=== PATIENT | male | born 1935 | race Caucasian/White ===

== ENCOUNTER → 2016-07-08 19:23 | Outpatient (CLI) | payer MEDICARE, BC ==
[2015-10-29 14:21] VITALS: BMI 22.1
[~2016-07-08 19:23] MED LIST: ALEVE220 MG PO; ELIQUIS2.5 MG PO; HYDROCODONE-APA1 TAB PO; NEURONTIN 300300 MG PO; PROBIOTIC1 EAC1 PO
== END | disposition home or self-care (01) ==
LOC: D.LABREF 19:23
DX: M25.561 Pain in right knee (principal)

== ENCOUNTER 2016-07-21 05:26 | Inpatient (IN) | payer MEDICARE, BC ==
[2016-07-17 13:50] LABS: BASOPHILS 0.4 % (0-2); EOSINOPHILS 1.4 % (0-7); HEMATOCRIT 39.5 % (42.0-54.0); HEMOGLOBIN 13.7 g/dL (13.5-17.5); IMMATURE GRANULOCYTES 0.2 % (0-5); LYMPHOCYTES 31.2 % (15-50); MCH 32.2 pg (26.0-34.0); MCHC 34.7 g/dL (31.0-37.0); MCV 92.9 fL (80.0-100.0); MEAN PLATELET VOLUME 10.3 fL (7.4-10.4); MONOCYTES 9.4 % (2-11); NEUTROPHILS 57.4 % (40-80); PLATELET COUNT 223 10x3/uL (130-400); RBC 4.25 10x6/uL (4.20-6.10); RDW 12.5 % (11.5-14.5); WBC 5.5 10x3/uL (4.8-10.8)
[2016-07-17 13:51] LABS: APTT 30.5 SECONDS (22.8-39.4); INR 0.9 (0.85-1.17); PROTIME 11.9 SECONDS (11.6-15.0)
[2016-07-17 13:52] LABS: APPEARANCE CLEAR (CLEAR); BILIRUBIN NEGATIVE (NEGATIVE); COLOR YELLOW (YELLOW); GLUCOSE NEGATIVE (NEGATIVE); KETONE NEGATIVE (NEGATIVE); LEUKOCYTE ESTERASE NEGATIVE (NEGATIVE); NITRITE NEGATIVE (NEGATIVE); PROTEIN NEGATIVE (NEGATIVE); SPECIFIC GRAVITY 1.025 (1.005-1.020); UROBILINOGEN NORMAL (NORMAL)
[2016-07-17 13:53] LABS: WHITE CELLS - URINE 0-5 /hpf (0-5)
[2016-07-17 13:54] LABS: BACTERIA FEW /hpf (NONE SEEN); EPITHELIAL CELLS OCC /hpf (0-5); MUCUS >1+ /lpf (NONE SEEN); RED CELLS - URINE 0-5 /hpf (0-5)
[2016-07-17 14:00] LABS: ANION GAP 11.2 mmol/L (8-16); CALCIUM 9.1 mg/dL (8.5-10.1); CARBON DIOXIDE 27.8 mmol/L (21.0-32.0); CREATININE - SERUM 1.3 mg/dL (0.6-1.3)
[~2016-07-21] VITALS: Ht 188 cm; Wt 81.8 kg
[2016-07-21] VITALS (11 sets, daily range): BP systolic 111–137; BP diastolic 51–87; Ht 188 cm; Wt 81.8 kg
--- NOTE | 2016-07-21 14:36 | NUR ---
PATIENT RECEIVED TO FLOOR FROM PACU VIA BED. A/O X4. VITAL SIGNS STABLE. DENIES NEEDS. ORIENTED TO ROOM. DRESSING TO RIGHT KNEE CLEAN, DRY AND INTACT. SCDS ON BILATERALLY. INCENTIVE SPIROMETER AND TEACHING ON USE PROVIDED. DEMONSTRATES CORRECT USE. SIDE RAILS UP X3. BED IN LOW POSITION. CALL LIGHT IN REACH. BED ALARM ON.
--- NOTE | 2016-07-21 16:45 | NUR ---
ALERT IN BED. NO SIGNS OF DISTRESS. MEDICATION ADMINISTERED. SIDE RAILS UP X2. BED IN LOW POSITION. CALL LIGHT IN REACH. BED ALARM ON.
--- NOTE | 2016-07-21 22:54 | NUR ---
PATIENT SITTING UP IN BED. ALERT AND ORIENTED. NO SIGNS OF DISTRESS NOTED. SCHEDULED MEDS GIVEN. SHIFT ASSESSMENT COMPLETED. DENIES NEEDS AT THIS TIME. BED LOW. CALL LIGHT IN REACH
[2016-07-22 05:03] LABS: HEMATOCRIT 37.7 % (42.0-54.0); HEMOGLOBIN 12.8 g/dL (13.5-17.5); MCH 31.8 pg (26.0-34.0); MCV 93.5 fL (80.0-100.0); MEAN PLATELET VOLUME 10.6 fL (7.4-10.4); RBC 4.03 10x6/uL (4.20-6.10); RDW 12.3 % (11.5-14.5); WBC 9.2 10x3/uL (4.8-10.8)
--- NOTE | 2016-07-22 07:20 | NUR ---
PATIENT RECEIVED ALERT IN MID MATTA POSITION. NO SIGNS OF DISTRESS NOTED. C/O PAIN 11/25. SIDE RAILS UP X3. BED IN LOW POSITION. CALL LIGHT IN REACH. BED ALARM ON.
--- NOTE | 2016-07-22 08:53 | NUR ---
PATIENT ALERT IN BED. NO SIGNS OF DISTRESS NOTED. SCHEDULED MEDICATION ADMINISTERED. NO NEEDS VOICED. SIDE RAILS UP X2. BED IN LOW POSITION. CALL LIGHT IN REACH. BED ALARM ON.
[2016-07-22 09:03] VITALS: BP 124/74
--- NOTE | 2016-07-22 11:45 | NUR ---
SITTING UP IN CHAIR ALERT. C/O PAIN 5/10. 1 TAB PERCOCET ADMINISTERED PER PRN ORDER. ICE PACK PLACED TO RIGHT KNEE. BOX ALARM ON AND ATTACHED TO PATIENT. CALL LIGHT IN REACH.
[2016-07-22 12:39] VITALS: BP 101/50
--- NOTE | 2016-07-22 14:03 | NUR ---
ALERT IN HIGH MATTA POSITION. NO SIGNS OF DISTRESS NOTED. SCHEDULED MEDICATION ADMINISTERED. NO NEEDS VOICED. SIDE RAILS UP X2. BED IN LOW POSITION. CALL LIGHT IN REACH. BED ALARM ON.
--- NOTE | 2016-07-22 14:41 | NUR ---
* Is the patient Alert and Oriented? Yes 0 * PCP [facility] 0 * Pharmacy [facility] 0 * Preadmission Environment Home Alone 0 * ADLs Independent 0 * Equipment Bedside Commode Cane Elevated [place] Seat Rolling Walker Shower Chair Walker 0 * List name and contact numbers for known caregivers / representatives who currently or will assist patient after discharge: JUDY TELLEZ [phone] 0 * Community resources currently utilized None 0 * Additional services required to return to the preadmission environment? Yes 0 * Can the patient safely return to the preadmission environment? Yes 0 * Has this patient been hospitalized within the prior 30 days at any hospital? No 0 Grand Total: 0 Patient Name: SHARMIN HERR Admission Status: Elective Accout number: [id number] Admission Date: 07-21-2016 : 1935 Admission Diagnosis: Attending: EDGARD Current LOS: 1 Anticipated DC Date: 07-24-2016 Planned Disposition: [facility] Primary Insurance: MEDICARE A & B Discharge Planning Comments: CM met with patient to assess discharge planning/needs. Patient states his discharge plan is go to [facility] for rehab because he lives alone and does not have anyone to help him. Patient states he is very happy with [facility]. ANIRUDH signed and placed in chart. Patient states that he has a ramp to his house along with cane,walker, wheelchair, shower chair, elevated toilet seat and denies any other home needs. CM will continue to follow and assist as needed with discharge planning needs. PCP: [facility] Pharmacy: [facility] Romeon[facility] Daughter - Judy Tellez [phone] Executive Vice President And Chief Operating Officer: Rose Qiu
--- NOTE | 2016-07-22 15:20 | NUR ---
DRESSING TO RIGHT KNEE SATURATED WITH BLOOD AND LEAKING. DRESSING D/C. BUDDY INTACT. NO REDNESS OR ODOR NOTED. NEW AQUACEL AG PLACED OVER INCISION, THEN COVERED WITH 4X4, ABD PAD AND WRAPPED WITH PETRONA. ICE PACK APPLIED. WELL TOLERATED. SIDE RAILS UP X2. BED IN LOW POSITION. CALL LIGHT IN REACH. BED ALARM ON.
--- NOTE | 2016-07-22 15:43 | NUR ---
Patient Name: SHARMIN HERR Encounter No: [id number] : 1935 Primary Insurance: MEDICARE A & B Anticipated DC Date: 07-24-2016 Planned Disposition: Intermediate Facility External Planned Provider: Leandro Messer DC follow-up note: Referral sent to Shanna at [facility]. Waiting determination, anticipate 07/24/16. Patient in agreement with discharge plan. No changes to plan. Case management will follow and assist as needed. Rose Qiu
[2016-07-22 16:46] VITALS: BP 120/74
--- NOTE | 2016-07-22 17:14 | NUR ---
PATIENT ALERT IN BED WATCHING TV. NO SIGNS OF DISTRESS NOTED. DENIES NEEDS. SIDE RAILS UP X2. BED IN LOW POSITION. CALL LIGTH IN REACH. BED ALARM ON.
[2016-07-22 20:00] VITALS: BP 142/70
--- NOTE | 2016-07-22 20:45 | NUR ---
PATIENT RESTING IN BED. ALERT. SOME CONFUSION NOTED. C/O PAIN 10/10 TO KNEE. PRN PERCOCET GIVEN ORDERED. SCHEDULED MEDS GIVEN. SHIFT ASSESSMENT COMPLETED. NO OTHER NEEDS VOICED. BED LOW. CALL LIGHT IN REACH. BED ALARM ON.
--- NOTE | 2016-07-22 22:20 | NUR ---
PT VERY CONFUSED. ATTEMPTING TO GET OUT OF BED. STATING HE'S OLD ENOUGH TO DO HE PLEASES IN HIS HOUSE. STATES HE'S TIRED OF BEING TIED TO THE BED REFERRING TO THE SCD'S. ATTEMPTS TO REORIENT ARE UNSUCCESSFUL. PT SITTING ON THE SIDE OF THE BED NOW. WILL SIT WITH THE PT UNTIL HE'S READY TO LIE DOWN.
[2016-07-23] VITALS: BP 150/72
[2016-07-23 04:00] VITALS: BP 155/70
[2016-07-23 06:46] LABS: HEMATOCRIT 36.1 % (42.0-54.0); HEMOGLOBIN 12.2 g/dL (13.5-17.5); MCH 31.5 pg (26.0-34.0); MCHC 33.8 g/dL (31.0-37.0); MCV 93.3 fL (80.0-100.0); MEAN PLATELET VOLUME 10.5 fL (7.4-10.4); RBC 3.87 10x6/uL (4.20-6.10); RDW 12.6 % (11.5-14.5)
[2016-07-23 06:47] LABS: WBC 6.7 10x3/uL (4.8-10.8)
--- NOTE | 2016-07-23 07:20 | NUR ---
PT REC'D FROM [facility]. RESTING IN BED WITH EYES CLOSED. NO SIGNS OF DISTRESS. RESP EVEN AND UNLABORED. DRESSING TO R KNEE CDI. BED LOW, CALL LIGHT IN REACH, DENIES NEEDS. CPOC.
[2016-07-23 08:59] VITALS: BP 131/73
--- NOTE | 2016-07-23 09:07 | NUR ---
Shanna with [facility] called and stated that the patient was accepted and she will call back with a picker tender helper time to tomorrow (07/24/16)
--- NOTE | 2016-07-23 09:59 | NUR ---
Shanna with [facility] called with picking machine operator time for 11:00 on () 07/24/16
[2016-07-23 13:22] VITALS: BP 130/68
[2016-07-23 16:29] VITALS: BP 138/81
[2016-07-23 20:00] VITALS: BP 125/77
[2016-07-24] VITALS: BP 130/76
--- NOTE | 2016-07-24 02:12 | NUR ---
REC'D AT [facility]. OF SHIFT AMB. IN HALLWAY WITH WALKER.DEEPA.WELL.ACEWRAP CLEAN AND DRY TO RIGHT KNEE NO DRAINAGE NOTED.FOOT PINK AND WARM PEDAL PULSE PRESENT,WIGGLE TOES AND DORSIFLEXES WITHOUT DIFFICULTY.WILL CONTINUE TO MONITOR FOR ANY CHGES. IN NEUROVASCULAR STATUS AND FOLLOW CURRENT PLAN OF CARE
[2016-07-24 04:00] VITALS: BP 122/66
--- NOTE | 2016-07-24 07:00 | NUR ---
PT REC'D FROM [facility]. RESTING IN BED WITH EYES CLOSED. NO SIGNS OF DISTRESS. RESP EVEN AND UNLABORED. BED LOW, CALL LIGHT IN REACH, DENIES NEEDS. CPOC.
[2016-07-24] MEDS ORDERED: ELIQUIS2.5 MG PO (08:05)
[2016-07-24] MEDS ORDERED: HYDROCODONE-APA1 TAB PO (08:05)
[2016-07-24 08:08] VITALS: BP 125/75
--- NOTE | 2016-07-24 08:27 | NUR ---
PATIENT SITTING UP IN THE BED AND EATING HIS BREAKFAST. PATIENT IS AWAKE, ALERT, AND ORIENTED X4. PATIENT REPORTS PAIN IN HIS RIGHT KNEE AND BACK. PATIENT RATES HIS PAIN LEVEL AN "8" ON A 0-10 SCALE. PETRONA DRESSING INTACT TO PATIENT'S RIGHT KNEE AREA. SALINE LOCK PATENT TO PATIENT'S LEFT ARM. PATIENT REQUESTS PAIN MEDICINE. WILL MEDICATE PATIENT FOR PAIN. PATIENT STATES HE WILL BE DISCHARGED TO [facility] TODAY FOR REHAB. CALL LIGHT IN PATIENT'S REACH. WILL MONITOR PATIENT.
--- NOTE | 2016-07-24 09:44 | NUR ---
REPORT CALLED TO TANNER ALLRED, AT [facility]. MORNING MEDS PASSED AT THIS TIME. ASSESSMENT COMPLETED PER FLOWSHEET. PAIN MEDICATION ADMINISTERED PER TAY JAMES. PT UP AMBULATING AROUND ROOM WITHOUT DIFFICULTY. BED LOW, CALL LIGHT IN REACH, DENIES NEEDS. CPOC.
--- NOTE | 2016-07-24 10:00 | NUR ---
PT UP AMBULATING WITH PHYSICAL THERAPY. TOLERATING WELL.
--- NOTE | 2016-07-24 11:12 | NUR ---
DC INSTRUCTIONS DISCUSSED WITH PT. NO QUESTIONS OR CONCERNS VOICED AT THIS TIME. PAPERS SIGNED. IV TO L FOREARM DC'D WITH CATHETER INTACT. PRESSURE AND DRESSING APPLIED. WEBBING WEAVER FROM [employer] HERE TO ESCORT PT OUT VIA WC.
--- NOTE | 2016-07-24 11:43 | NUR ---
patient discharged today to [facility] to a Skilled Bed. via [facility] transportation.
== END 2016-07-24 11:13 | DRG 468 ==
LOC: D.SDCHOLD 05:26 → D.MS 05:26 → D.SDCHOLD 10:45 → D.MS 14:29
PROVIDERS: ADMIT Orthopaedic Surgery
PROC: 0SPC0JZ Removal of Synthetic Substitute from Right Knee Joint, Open Approach (ICD-10-PCS; 2016-07-21)
PROC: 0SRC0JZ Replacement of Right Knee Joint with Synthetic Substitute, Open Approach (ICD-10-PCS; principal; 2016-07-21 10:45)
DX: T84.84XA Pain due to internal orthopedic prosthetic devices, implants and grafts, initial encounter (principal)

== ENCOUNTER 2016-10-06 07:28 | Outpatient (CLI) | payer MEDICARE, BC ==
[~2016-10-06] VITALS: Ht 188 cm; Wt 81.8 kg
--- NOTE | ~2016-10-06 | HEMODYNAMI ---
PATIENT:SHARMIN HERR MEDICAL RECORD: [id number] : [birth year] LOCATION:[facility] ADMISSION DATE: 10/06/16 Generatedon:10/06/201611:50 Patient name: SHARMIN HERR Patient #: [id number] SSN: D OB: 1935 Date of study: 10/06/2016 Page: Of Hemodynamic Procedure Report Patient Data Patient Demographics Procedure consent was obtained First Name: SHARMIN Gender: Male Last Name: NEMESIO : 1935 [facility] Initial: JAIME Age: 81 year(s) Patient #: [id number] Race: Unknown Additional ID: [id number] Contact details Address: [address] [place] [address] [place] [place] [facility] Zip code: [address] Admission Admission Data Admission Date: 10/06/2016 Admission Time: 7:28 Procedure Procedure Types Cath Procedure Peripheral Cath Diagnostic Procedure Miscellaneous Procedure Description Procedure Date Procedure Date: 10/06/2016 Procedure Start Time: 10:50 Procedure Staff Name Function Quinn Langston MD Performing Physician Sury Winters RT Scrub Fabricio Fuchs RT Monitor Esther Mesa RN Nurse Procedure Data Cath Procedure Fluoroscopy Diagnostic fluoroscopy Total fluoroscopy Time: 9.1 time: 9.1 min min Diagnostic fluoroscopy Total fluoroscopy dose: 203 dose: 203 mGy mGy Contrast Material Contrast Material Type Amount (ml) Isovue 300 61 Entry Location Entry Primary Successful Side Size Upsize Upsize Entry Closure Succ essful Closure Location (Fr) 1 (Fr) 2 (Fr) Remarks Device Remarks Femoral Left 5 Fr 8 Fr Angio-VIP artery 8Fr Diagnostic catheters Device Type Used For End Catheter Placement Merit ULTRA BOLUS FLUSH 5Fr 65CM catheter Hemodynamics Rest Heart Rate: 59 (bpm) Snapshots Pre Cath Intra NCS Post Cath Vital Signs Time Heart Resp SPO2 NIBP (mmHg) Rhythm Pain Sedation Rate (ipm) (%) Status Level (bpm) 10:35:02 61 16 100 143/76(120) NSR 0 (11) 10(A) , No pain 10:39:18 62 13 94 145/72(116) NSR 0 (11) 10(A) , No pain 10:43:34 76 13 99 143/80(110) NSR 0 (11) 10(A) , No pain 10:47:50 73 11 98 127/76(106) NSR 0 (11) 10(A) , No pain 10:52:00 72 11 98 134/73(98) NSR 0 (11) 10(A) , No pain 10:56:14 72 10 99 126/72(107) NSR 0 (11) 10(A) , No pain 11:00:25 71 10 99 121/68(102) NSR 0 (11) 10(A) , No pain 11:04:36 70 11 98 124/69(97) NSR 0 (11) 10(A) , No pain 11:08:45 67 11 99 136/72(102) NSR 0 (11) 10(A) , No pain 11:13:01 72 11 99 133/69(101) NSR 0 (11) 10(A) , No pain 11:17:13 72 11 96 122/76(94) NSR 0 (11) 10(A) , No pain 11:21:23 73 10 97 130/73(104) NSR 0 (11) 10(A) , No pain 11:25:37 72 10 98 120/68(90) NSR 0 (11) 10(A) , No pain 11:29:51 72 11 98 117/60(92) NSR 0 (11) 10(A) , No pain 11:33:59 73 10 99 122/71(93) NSR 0 (11) 10(A) , No pain 11:38:11 70 11 99 120/68(99) NSR 0 (11) 10(A) , No pain 11:42:23 66 11 100 132/67(111) NSR 0 (11) 10(A) , No pain 11:46:33 68 10 100 148/87(126) NSR 0 (11) 10(A) , No pain Procedure Log Time Note 10:11:37 Fabricio Fuchs RT (R) (CV) sent for patient. Start room use. 10:11:48 Time tracking: Regular hours 10:11:54 Plan of Care:Hemodynamics will remain stable., Cardiac rhythm will remain stable., Comfort level will be maintained., Respiratory function will remain adequate., Patient/ family verbilizes understanding of procedure., Procedure tolerated without complication., Recovers from procedure without complications.. 10:21:45 AL with anesthesia here for case 10:22:20 Patient received from Outpatients to IR Alert and oriented. Tansferred to table in Supine position. 10:22:22 Warm blankets applied, and jennifer hugger turned on for patient comfort. 10:22:23 Correct patient and procedure confirmed by team. 10::25 Signed procedure consent form obtained from patient. 10:22:25 ECG and BP/O2 sat monitors applied to patient. 10::27 Full Disclosure recording started 10::28 - 10:22:33 H&P Date Dictated: 10/06/2016 H&P Addendum completed by physician on day of procedure. (MUST COMPLETE FOR ALL OUTPATIENTS). 10:22:35 Pre-procedure instructions explained to patient. 10:22:36 Pre-op teaching completed and patient verbalized understanding. 10:22:40 Use device set IR Diagnostic 10:22:41 Acist Syringe opened to sterile field. 10:22:41 Acist Hand Control opened to sterile field. 10:22:42 Acist Manifold opened to sterile field. 10:22:42 Bag Decanter opened to sterile field. 10:22:43 Sterile Angiographic Pack opened to sterile field. 10:22:57 Family unavailable. 10:23:00 Patient NPO since Midnight. 10:25:16 SEE ANESTHESIA NOTE FO PRE PROCEDURE TIVA 10:25:27 Pre procedure: right dorsailis pedis pulse 1+ Palpable, but thready & weak; easily obliterated 10:25:30 Pre procedure: left dorsailis pedis pulse 1+ Palpable, but thready & weak; easily obliterated 10:25:33 Pre procedure: right posterior tibial pulse Doppler 10:25:36 Pre procedure: left posterior tibial pulse Doppler 10:25:43 Bilateral groins area was prepped with chlora-prep and draped in steril e fashion 10:33:54 Vital chart was started 10:33:55 Baseline sample Acquired. 10:33:59 Rhythm: sinus rhythm 10:47:19 Physician arrived 10:47:19 --------ALL STOP TIME OUT------ 10:47:20 Final Timeout: patient, procedure, and site verified with staff and physician. All members of the team are in agreement. 10:47:24 Bilateral groins site verified by team. 10:47:27 Physical assessment completed. ASA score P 2 - A patient with mild systemic disease as per Quinn Langston MD. 10:47:33 Sedation plan: TIVA Propofol 10:49:31 Procedure started. 10:50:41 Local anesthetic to left femerol artery with Lidocaine 1% by Quinn Langston MD.INITIAL ACCESS ONLY 10:50:52 A 5 Fr sheath was inserted into the Left Femoral artery 10:50:55 Cook DOC .035 guide wire opened to sterile field. 10:50:55 PERCUTANEOUS ENTRY 19GA needle opened to sterile field. 10:50:56 TUBING, CONTRAST INJCTN HI PRES opened to sterile field. 10:50:56 Terumo 5Fr Vinton Sheath opened to sterile field. 10:50:58 A Profound ULTRA BOLUS FLUSH 5Fr 65CM catheter was advanced over the wire and used for . 10:57:04 Terumo TORQUE DEVICE PLASTIC .038 opened to sterile field. 10:57:05 Terumo ANGLE 180L glide wire opened to sterile field. 11:05:18 ARROW SUPERFLEX 8FR 45CM sheath opened to sterile field. 11:05:27 Sheath upsized to a 8 Fr. 11:11:44 Terumo 4FR Straight 100CM glide catheter opened to sterile field. 11:11:51 BasixTOUCH Inflation Syringe opened to sterile field. 11:15:04 VIABAHN 8 X 10 X 120 stent was deployed across Mid Superficial Femoral, Right . 11:15:33 Inflation number: 1 A Cordis Powerflex Pro 7.0 x 40 x 135cm balloon was prepped and advanced across the Mid Superficial Femoral, Right, then inflated 11:22:20 VIABAHN 8 X 5 X 75 stent was deployed across Mid Superficial Femoral, Right . 11:23:16 Inflation number: 2 A Cordis Powerflex Pro 8.0 x 40 x 135cm balloon was prepped and advanced across the Mid Superficial Femoral, Right, then inflated 11:23:23 Cook LETA 260 guide wire opened to sterile field. 11:29:51 ANGIOSEAL-VIP PLUS 8 FR opened to sterile field. 11:34:47 Sheath removed intact; hemostasis achieved with Angio-VIP 8Fr to the Left Femoral artery. 11:34:52 Procedure ended.(Physican Out) 11:35:29 Fluoroscopy time 09.10 minutes. 11:35:34 Fluoroscopy dose: 203 mGy 11:35:34 Flurop Dose total: 203 11:39:33 Contrast amount:Isovue 300 61ml. 11:39:35 Sharps counted by scrub and verified by R.N. 11:39:36 Insertion/operative site no bleeding no hematoma. 11:39:36 Insertion/operative site no bleeding no hematoma. 11:39:40 Post-op/insertion site Left Femoral artery dressed using a 4 x 4 and Tegaderm. 11:39:46 Post left femerol artery:stable 11:39:54 Post-procedure physical assessment completed. ASA score P 2 - A patient with mild systemic disease as per Quinn Langston MD. 11:39:55 Post procedure instruction explained to patient.Patient verbalizes understanding. 11:39:56 Procedure and supply charges have been captured, reviewed, submitted an d are correct. 11:49:36 Report given to Outpatients. 11:49:41 Patient transfered to Other with Stretcher. 11:50:23 Vital chart was stopped Intervention Summary Intervention Notes Time ActionType Lesion and Equipment Action# Pressure Duration Attributes Used 11:15:04 Deploy self Mid VIABAHN 8 1 expanding Superficial X 10 X stent Femoral, 120 stent Right 11:15:33 Inflate Mid Cordis 1 0 00:00 balloon Superficial Powerflex Femoral, Pro 7.0 x Right 40 x 135cm balloon 11:22:20 Deploy self Mid VIABAHN 8 1 expanding Superficial X 5 X 75 stent Femoral, stent Right 11:23:16 Inflate Mid Cordis 2 0 00:00 balloon Superficial Powerflex Femoral, Pro 8.0 x Right 40 x 135cm balloon Device Usage Item Name Manufacture Quantity Catalog Number Hospital Part Current Min imal Lot# / Charge Number Stock Stock Serial# Code Acist Syringe Acist 1 69555 177627 546823 [id number] 20 Medical Systems Inc Acist Hand Acist 1 27890 846382 739011 348961 5 Control Medical Systems Inc Acist Acist 1 74116 522697 645860 312908 5 Manifold Medical Systems Inc Bag Decanter Microtek 1 2002S 244450 88020 691264 5 Medical Inc. Sterile Cardinal 1 [id number] 773209 976754 5 Angiographic Health Pack Cook DOC .035 Cook Medical 1 [id number] 705596 417685 5 [id number] guide wire PERCUTANEOUS [place] [employer] 1 [id number] 638311 885616 5 [id number] ENTRY 19GA needle TUBING, Merit 1 [id number] 985902 671247 160945 5 CONTRAST Medical INJCTN HI PRES Terumo 5Fr Terumo 1 [id number] 864687 189441 720842 40 Vinton Sheath Merit ULTRA Merit 1 [id number] 710772 156632 5 BOLUS FLUSH Medical 5Fr 65CM catheter Terumo TORQUE [place] 1 [id number] 477365 620420 743307 5 DEVICE Scientific PLASTIC .038 Terumo ANGLE Terumo 1 [id number] 239880 326837 877085 5 180L glide wire ARROW Teleflex 1 [id number] 248383 285631 5 SUPERFLEX 8FR 45CM sheath Terumo 4FR Terumo 1 [id number] 894333 121292 5 Straight 100CM glide catheter BasixTOUCH Merit 1 [id number] 410824 584885 295324 5 Inflation Medical Syringe VIABAHN 8 X [facility] [place] 1 [id number] 420564 513365 617664 5 [id number] 10 X 120 stent Cordis Cardinal 1 [id number] 343094 072931 028354 5 Powerflex Pro Health 7.0 x 40 x 135cm balloon VIABAHN 8 X 5 [facility] [place] 1 [id number] 225908 273604 882156 5 [id number] X 75 stent Cordis Cardinal 1 [id number] 310369 368987 553369 5 Powerflex Pro Health 8.0 x 40 x 135cm balloon Cook GILLETTE Cook Medical 1 [id number] 203127 370674 5 [id number] 260 guide wire ANGIOSEAL-VIP [facility] 1 [id number] 566939 781131 5 [id number] PLUS 8 FR Signature Audit [place] Stage Time Signature Unsigned Intra-Procedure 10/06/2016 Fabricio 11:50:19 AM Shila RT (R) (CV) Signatures Monitor : Fabricio Signature : Shila RT Date : Time : [facility] [address] [place] [address]
[2016-10-06 08:41] VITALS: BP 138/74; Ht 188 cm; Wt 81.8 kg
[2016-10-06 08:48] LABS: BASOPHILS 0.5 % (0-2); EOSINOPHILS 1.2 % (0-7); HEMATOCRIT 39.1 % (42.0-54.0); HEMOGLOBIN 13.4 g/dL (13.5-17.5); IMMATURE GRANULOCYTES 0.2 % (0-5); LYMPHOCYTES 37.1 % (15-50); MCH 31.5 pg (26.0-34.0); MCHC 34.3 g/dL (31.0-37.0); MCV 91.8 fL (80.0-100.0); MEAN PLATELET VOLUME 9.5 fL (7.4-10.4); MONOCYTES 8.3 % (2-11); NEUTROPHILS 52.7 % (40-80); RBC 4.26 10x6/uL (4.20-6.10); RDW 13.4 % (11.5-14.5); WBC 5.9 10x3/uL (4.8-10.8)
[2016-10-06 08:51] LABS: PLATELET COUNT 183 10x3/uL (130-400)
[2016-10-06] MEDS ORDERED: ALEVE220 MG PO (08:54)
[2016-10-06 09:13] LABS: APTT 31.2 SECONDS (22.8-39.4); INR 0.95 (0.85-1.17); PROTIME 12.5 SECONDS (11.6-15.0)
[2016-10-06 09:23] LABS: ANION GAP 3.5 mmol/L (8-16); CALCIUM 8.7 mg/dL (8.5-10.1); CARBON DIOXIDE 33.4 mmol/L (21.0-32.0); CREATININE - SERUM 1.5 mg/dL (0.6-1.3); POTASSIUM - SERUM 3.9 mmol/L (3.5-5.1)
--- NOTE | 2016-10-06 12:22 | NUR ---
1215 SEE POST PROCEDURE CHECKLIST FOR VITAL SIGNS
--- NOTE | 2016-10-06 12:35 | NUR ---
1230 PT AROUSES WITH GROIN CHECK, REMINDED TO KEEP LEGS STRAIGHT AND FLAT AT THIS TIME. PT DOSING. O2 AT 2L NC. PEDAL PULSES PAL DORSAL STRONG. RIGHT, PAL LEFT. CALL LIGHT AT SIDE. REMINDED HIME OF DC TIME FRAME.
== END 2016-10-06 17:00 | disposition home or self-care (01) ==
LOC: D.OPS 07:28 → D.RAD 07:28 → D.OPS 17:00
PROVIDERS: Specialist
DX: I72.4 Aneurysm of artery of lower extremity (principal); I70.211 Atherosclerosis of native arteries of extremities with intermittent claudication, right leg; Z88.5 Allergy status to narcotic agent; Z01.812 Encounter for preprocedural laboratory examination

== ENCOUNTER → 2016-11-20 15:32 | Outpatient (CLI) | payer MEDICARE, BC ==
[2016-10-06 08:41] VITALS: BMI 23.1
[~2016-11-20 15:32] MED LIST changes: +PLAVIX75 MG PO; +ULTRAM50 MG PO
== END | disposition home or self-care (01) ==
LOC: D.RAD 15:32
DX: R19.7 Diarrhea, unspecified (principal); K59.00 Constipation, unspecified; R19.4 Change in bowel habit; K57.30 Diverticulosis of large intestine without perforation or abscess without bleeding; K62.5 Hemorrhage of anus and rectum; R15.9 Full incontinence of feces; R19.5 Other fecal abnormalities

== ENCOUNTER → 2017-01-23 09:02 | Outpatient (CLI) | payer MEDICARE, BC ==
[2016-10-06 08:41] VITALS: BMI 23.1
== END | disposition home or self-care (01) ==
LOC: D.NM 09:02
DX: M25.561 Pain in right knee (principal)

== ENCOUNTER → 2017-01-27 11:00 | Outpatient (CLI) | payer MEDICARE, BC ==
[2016-10-06 08:41] VITALS: BMI 23.1
== END | disposition home or self-care (01) ==
LOC: D.RAD 10:00
DX: K59.00 Constipation, unspecified (principal)

== ENCOUNTER → 2017-02-04 09:00 | Outpatient (CLI) | payer MEDICARE, BC ==
[2016-10-06 08:41] VITALS: BMI 23.1
== END | disposition home or self-care (01) ==
LOC: D.LABREF 09:00
DX: T84.84XA Pain due to internal orthopedic prosthetic devices, implants and grafts, initial encounter (principal)

== ENCOUNTER 2017-03-02 07:50 | Inpatient (IN) | payer MEDICARE, BC ==
[2017-02-27 14:46] LABS: BASOPHILS 0.2 % (0-2); EOSINOPHILS 1.2 % (0-7); HEMATOCRIT 40.6 % (42.0-54.0); HEMOGLOBIN 13.7 g/dL (13.5-17.5); IMMATURE GRANULOCYTES 0.2 % (0-5); LYMPHOCYTES 36.6 % (15-50); MCH 31.2 pg (26.0-34.0); MCHC 33.7 g/dL (31.0-37.0); MCV 92.5 fL (80.0-100.0); MEAN PLATELET VOLUME 10.1 fL (7.4-10.4); MONOCYTES 6.6 % (2-11); NEUTROPHILS 55.2 % (40-80); RBC 4.39 10x6/uL (4.20-6.10); WBC 5.7 10x3/uL (4.8-10.8)
[2017-02-27 14:57] LABS: APTT 30.5 SECONDS (22.8-39.4); INR 0.94 (0.85-1.17); PROTIME 12.1 SECONDS (11.6-15.0)
[2017-02-27 15:16] LABS: ANION GAP 11.1 mmol/L (8-16); CALCIUM 9.1 mg/dL (8.5-10.1); CARBON DIOXIDE 29.1 mmol/L (21.0-32.0); CREATININE - SERUM 1.4 mg/dL (0.6-1.3); POTASSIUM - SERUM 4.2 mmol/L (3.5-5.1)
[2017-02-27 15:20] LABS: PLATELET COUNT 223 10x3/uL (130-400)
[2017-03-02] VITALS (11 sets, daily range): BP systolic 89–146; BP diastolic 49–80; BMI 21.8
[~2017-03-02] VITALS: Ht 188 cm; Wt 82.7 kg
--- NOTE | ~2017-03-02 | OP ---
PATIENT NAME: SHARMIN HERR MEDICAL RECORD: [id number] :33 LOCATION:[id number] ADMISSION DATE:03/02/17 SURGEON: JAVON MIRANDA MD DATE OF OPERATION: 03/02/2017 PREOPERATIVE DIAGNOSIS: Painful total knee arthroplasty, right -- femoral component. POSTOPERATIVE DIAGNOSIS: Painful total knee arthroplasty, right -- femoral component. PROCEDURE: Revision total knee arthroplasty, femoral component and tibial polyethylene. SURGEON: Javon Miranda MD ANESTHESIA: General. INTRAOPERATIVE COMPLICATIONS: None. SUMMARY OF PATHOLOGIC FINDINGS: Essentially, no pathologic findings were noted. The patient has had pain at the proximal stem of the press-fit revision total knee for quite some time. Radiographs have started to show some femoral changes at the proximal tip. For this reason, the decision was made to change the component from press-fit to cemented in this now 81-year-old gentleman. OPERATIVE SUMMARY IN DETAIL: After obtaining the appropriate preoperative orthopedic surgery consent as well as anesthetic consultation, evaluation and clearance, the patient was brought to the operating room and placed on the operating table in supine position. After general laryngeal mask was administered, tourniquet was placed about the proximal aspect of the right lower extremity. Right lower extremity was then prepped and draped in a routine sterile fashion. The leg was elevated, exsanguinated, and tourniquet was inflated to 350 mmHg. Previously utilized incision was made again midline, taken down for paramedian arthrotomy. Paramedian arthrotomy was performed and the distal femur was exposed without any bone loss at all. The distal femoral component, the well-fixed was removed along with the intramedullary component. Having completed this, cleanup cuts were made and cleanup reaming was done for good cement adherence. Trial size 6 with two 5-mm distal augments, a lateral posterior 10-mm augment, a medial posterior 5, also the patient's 100 mm stem trial was put together and put into place. At this point, final components were opened, put together on the back field and the femoral component was cemented into place. After the cement was allowed to harden, trials were undertaken and it was felt that a size 16 polyethylene component would be the most appropriate. The size 16 polyethylene component was snapped into place with a post. The knee was taken through range of motion and found to be stable in all planes. Copious irrigation was followed by judicious use of Vitagel. This was then followed by closing the arthrotomy with a #2 Ethibond. This was followed by #1 Vicryl, 2-0 Vicryl and skin patrica. Sterile dressings were applied. Tourniquet was deflated. The patient was awakened and taken to the recovery room in stable condition. All final needle and sponge counts were correct. TRANSINT:[id number] Voice Confirmation ID: [id number] DOCUMENT ID: [id number] OPERATIVE REPORT [id number] SHARMIN HERR MD, JAVON BOSWELL at 1651 CC: [id number] DICTATION DATE: 03/02/17 1326 RESERVATION SALES AGENT: 03/02/17 1619 ADM IN [facility] [address] [place] [address]
--- NOTE | ~2017-03-02 | CN ---
PATIENT NAME:SHARMIN HERR MEDICAL RECORD: [id number] : 33 LOCATION:[facility] ADMIT DATE: 03/02/17 ACCOUNT: [id number] CONSULTING PHYSICIAN: KESHA FAYE III, MD REFERRING PHYSICIAN: JAVON MIRANDA MD DATE OF CONSULTATION: 03/04/2017 FINDINGS: An 81-year-old white male who was admitted to the hospital on 03/02/2017 for total knee revision. Postoperatively, the patient has shown worsening confusion. This morning, he is disoriented, he does not realize he is in a hospital. When asked by staff member where he lived, he said "with you." Speech is rambling. The patient had become quite restless and agitated, and restraints were employed briefly. On exam this morning, the patient remains extremely confused. He is oriented only to self. Mood is irritable. Affect is brittle. Speech is nonsensical. Content of thought is negative for overt psychosis. Memory is at the moment severely impaired. DIAGNOSTIC IMPRESSION: AXIS I: Subacute delirium likely compounding preexisting early dementia symptoms (according to reports received from staff and Dr. Miranda's office). Delirium obviously influenced by stress of surgery, possible reaction to anesthetic. RECOMMENDATIONS: I have instituted p.r.n. Haldol. If the patient shows significant clearing, then plans to have him placed at [facility] ([place], [place]) can proceed. However, if his confusion and agitation remain persistent, then we may consider transfer to snf. TRANSINT:[id number] Voice Confirmation ID: [id number] DOCUMENT ID: [id number] KESHA FAYE III, MD at 0452 CC: [id number] DICTATION DATE: 03/04/17 1156 PAPER TUBE MACHINE OPERATOR: 03/04/17 1423 ADM IN [facility] [address] [place] [address]
[~2017-03-02 07:50] MED LIST changes: -ULTRAM50 MG PO
[2017-03-03] VITALS (9 sets, daily range): BP systolic 115–158; BP diastolic 69–94
[2017-03-03 04:36] LABS: HEMATOCRIT 33.3 % (42.0-54.0); HEMOGLOBIN 11.2 g/dL (13.5-17.5); MCH 30.8 pg (26.0-34.0); MCHC 33.6 g/dL (31.0-37.0); MCV 91.5 fL (80.0-100.0); RBC 3.64 10x6/uL (4.20-6.10); RDW 12.9 % (11.5-14.5)
[2017-03-04] VITALS (23 sets, daily range): BP systolic 88–167; BP diastolic 49–98; Ht 188 cm; Wt 82.7 kg
[2017-03-04 05:00] LABS: HEMATOCRIT 33.1 % (42.0-54.0); HEMOGLOBIN 11.7 g/dL (13.5-17.5); MCH 31.2 pg (26.0-34.0); MCHC 35.3 g/dL (31.0-37.0); MEAN PLATELET VOLUME 9.9 fL (7.4-10.4); RBC 3.75 10x6/uL (4.20-6.10); RDW 12.9 % (11.5-14.5); WBC 7.4 10x3/uL (4.8-10.8)
[2017-03-04 05:11] LABS: MCV 88.3 fL (80.0-100.0)
[2017-03-05] VITALS (10 sets, daily range): BP systolic 92–120; BP diastolic 54–86
[2017-03-05] MEDS ORDERED: ULTRAM50 MG PO (08:21)
[2017-03-05] MEDS ORDERED: ELIQUIS2.5 MG PO (08:22)
== END 2017-03-05 14:10 | DRG 467 ==
LOC: D.ICU 07:50 → D.MS 07:50 → D.SDCHOLD 07:50 → D.MS 13:42 → D.ICU 03-03 19:55
PROVIDERS: Anesthesiology; Orthopaedic Surgery
PROC: 0SRC0J9 Replacement of Right Knee Joint with Synthetic Substitute, Cemented, Open Approach (ICD-10-PCS; 2017-03-02)
PROC: 0SPC0JZ Removal of Synthetic Substitute from Right Knee Joint, Open Approach (ICD-10-PCS; principal; 2017-03-02 10:15)
DX: T84.84XA Pain due to internal orthopedic prosthetic devices, implants and grafts, initial encounter (principal); F05 Delirium due to known physiological condition; I73.9 Peripheral vascular disease, unspecified; F03.90 Unspecified dementia, unspecified severity, without behavioral disturbance, psychotic disturbance, mood disturbance, and anxiety; Z87.891 Personal history of nicotine dependence; F41.9 Anxiety disorder, unspecified

== ENCOUNTER → 2017-03-16 09:21 | Outpatient (CLI) | payer MEDICARE, BC ==
[2017-03-04 10:02] VITALS: BMI 21.8
[~2017-03-16 09:21] MED LIST changes: +ULTRAM50 MG PO
== END | disposition home or self-care (01) ==
LOC: D.RAD 09:21
DX: R09.89 Other specified symptoms and signs involving the circulatory and respiratory systems (principal)

== ENCOUNTER 2017-07-06 22:40 | Inpatient (IN) | payer MEDICARE, BC ==
[~2017-07-06] VITALS: Ht 188 cm; Wt 72.7 kg
--- NOTE | ~2017-07-06 | HP ---
PATIENT: SHARMIN HERR MEDICAL RECORD: [id number] ACCOUNT: [id number] LOCATION:D.MS [facility] : 34 ADMISSION DATE: 07/07/17 HISTORY AND PHYSICAL EXAMINATION DATE OF ADMISSION: 07/07/2017 CHIEF COMPLAINT: Blood in urine. HISTORY: This is an 82-year-old white male, who is in his usual state of health last night, about 7 p.m. when he went to urinate and stated that it was "pure blood." He denied any abdominal pain. No urinary frequency, urgency, or dysuria. No chest pain, shortness of breath. No weakness. He immediately drove to the ER. His hemoglobin was 12.8. Basic metabolic panel was okay except BUN elevated at 35, alkaline phosphatase is 251. Rest of his blood tests was unremarkable. Urinalysis showed red cloudy urine with 2+ blood, 1+ leukocyte esterase. Urine culture is done. He is admitted for further evaluation of his hematuria. PAST MEDICAL AND SURGICAL HISTORY: He has had chronic back pain, was followed by chronic pain specialist for years and at one time had an implanted pump in his back. He has had left knee arthroscopy multiple times. He has had lumbar surgeries multiple times. He has had right total knee arthroplasty times 3. He has had bilateral inguinal hernia repair, rotator cuff repair. ALLERGIES: MORPHINE. CURRENT MEDICATIONS: Plavix 75 mg a day, gabapentin 900 mg 3 times a day. SOCIAL HISTORY: , retired. FAMILY HISTORY: Both parents are . HABITS: Never smoked. No alcohol or drugs. REVIEW OF SYSTEMS: GENERAL: No major weight changes. HEENT: No particular sinus or allergy problems. RESPIRATORY: No history of emphysema or asthma. CARDIAC: No known coronary disease. GASTROINTESTINAL: No trouble with reflux. He has some constipation issues at times. MUSCULOSKELETAL: Chronic pains in his back. NEUROLOGIC: He has lot of dizziness. PSYCHIATRIC: He has had anxiety. PHYSICAL EXAMINATION: VITAL SIGNS: Temperature 98.1, pulse 70, respirations 18, blood pressure 110/74, O2 sat 99%. GENERAL: He does not appear to be in acute distress. He is awake and alert. HEENT: Grossly within normal limits. NECK: Supple. HEART: Regular rate and rhythm without murmur. LUNGS: Clear. ABDOMEN: Soft, flat, nontender. HISTORY AND PHYSICAL [id number] NEMESIOSHARMIN SANDOVAL EXTREMITIES: No edema. LABORATORY DATA: CBC with a white count of 6000, hemoglobin 12.8, hematocrit 37.5. Basic metabolic panel is all okay except BUN elevated at 35. Liver functions are all normal except alkaline phosphatase elevated at 251. Urinalysis shows red cloudy urine, 2+ blood, 1+ leukocyte esterase, 25-50 red blood cells, and a few bacteria. Urine culture is pending. ASSESSMENT: Gross hematuria. PLAN: Consult Dr. Rasmussen. Tests and procedures as warranted. TRANSINT:[id number] Voice Confirmation ID: [id number] DOCUMENT ID: [id number] TRISTON CASTELLANO MD at 0800 CC: [id number] DICTATION DATE: 07/07/17757 CASTING WHEEL OPERATOR: 07/07/17 0939 ADM IN [place] [address] [place] [address]
[2017-07-07 01:28] LABS: BASOPHILS 0.3 % (0-2); EOSINOPHILS 0.7 % (0-7); HEMATOCRIT 37.5 % (42.0-54.0); HEMOGLOBIN 12.8 g/dL (13.5-17.5); IMMATURE GRANULOCYTES 0.2 % (0-5); LYMPHOCYTES 27.3 % (15-50); MCH 30.9 pg (26.0-34.0); MCHC 34.1 g/dL (31.0-37.0); MCV 90.6 fL (80.0-100.0); MEAN PLATELET VOLUME 9.8 fL (7.4-10.4); MONOCYTES 9.9 % (2-11); NEUTROPHILS 61.6 % (40-80); PLATELET COUNT 206 10x3/uL (130-400); RBC 4.14 10x6/uL (4.20-6.10); RDW 12.7 % (11.5-14.5)
[2017-07-07 01:39] LABS: ALBUMIN 3.8 g/dL (3.4-5.0); BILIRUBIN - TOTAL 1.33 mg/dL (0.2-1.3); CALCIUM 9.2 mg/dL (8.5-10.1); CARBON DIOXIDE 26.7 mmol/L (21.0-32.0); CREATININE - SERUM 1.3 mg/dL (0.6-1.3); POTASSIUM - SERUM 3.7 mmol/L (3.5-5.1); PROTEIN - SERUM 7.4 g/dL (6.4-8.2)
[2017-07-07 01:47] LABS: APPEARANCE CLOUDY (CLEAR); BILIRUBIN NEGATIVE (NEGATIVE); COLOR RED (YELLOW); GLUCOSE NEGATIVE (NEGATIVE); KETONE NEGATIVE (NEGATIVE); NITRITE NEGATIVE (NEGATIVE); PROTEIN 3+ mg/dL (NEGATIVE); UROBILINOGEN NORMAL (NORMAL)
[2017-07-07 01:48] LABS: BACTERIA FEW /hpf (NONE SEEN); EPITHELIAL CELLS 0-5 /hpf (0-5); RED CELLS - URINE 25-50 /hpf (0-5); WHITE CELLS - URINE 0-5 /hpf (0-5)
[2017-07-07] MEDS ORDERED: PLAVIX75 MG PO (05:18)
[2017-07-07 05:19] VITALS: BP 134/71; BMI 20.5
[2017-07-07 05:24] VITALS: BP 110/74
[2017-07-07 08:48] VITALS: BP 115/63
[2017-07-07 13:12] VITALS: BP 112/61
[2017-07-07 16:45] VITALS: BP 118/62
[2017-07-07 17:44] VITALS: Ht 188 cm; Wt 72.7 kg
[2017-07-07 20:39] VITALS: BP 118/55
[2017-07-08 04:57] VITALS: BP 128/79
[2017-07-08 09:36] VITALS: BP 106/72
[2017-07-08 13:39] VITALS: BP 121/63
[2017-07-08 16:25] VITALS: BP 118/58
[2017-07-08 20:48] VITALS: BP 96/42
[2017-07-09 04:45] VITALS: BP 107/50
[2017-07-09 08:04] VITALS: BP 145/73
[2017-07-09 11:08] VITALS: BP 136/79
[2017-07-09 12:44] LABS: CREATININE - SERUM 1.2 mg/dL (0.6-1.3)
[2017-07-09 15:41] VITALS: BP 139/70
[2017-07-09 20:27] VITALS: BP 141/71
[2017-07-09 23:35] VITALS: BP 140/68
[2017-07-10 04:27] VITALS: BP 172/93
[2017-07-10 08:10] VITALS: BP 124/78
[2017-07-10] MEDS ORDERED: CASODEX50 MG PO (11:17)
[2017-07-10] MEDS ORDERED: DILAUDID2 MG PO (11:18)
== END 2017-07-10 13:13 | disposition home health service (06) | DRG 723 ==
LOC: D.ER 22:40 → D.MS 07-07 01:52 → D.EDHOLD 07-07 01:52 → D.MS 07-07 02:41 → D.SDCHOLD 07-07 07:39 → D.MS 07-07 07:39
PROVIDERS: Emergency Medicine; Internal Medicine Hematology & Oncology; Physician Assistant Medical
DX: C61 Malignant neoplasm of prostate (principal); C79.51 Secondary malignant neoplasm of bone; R31.0 Gross hematuria; R59.1 Generalized enlarged lymph nodes; T45.525A Adverse effect of antithrombotic drugs, initial encounter; F41.9 Anxiety disorder, unspecified; I73.9 Peripheral vascular disease, unspecified; Z95.820 Peripheral vascular angioplasty status with implants and grafts; N26.1 Atrophy of kidney (terminal); R33.9 Retention of urine, unspecified; N32.89 Other specified disorders of bladder; Z90.79 Acquired absence of other genital organ(s)

== ENCOUNTER → 2017-11-10 12:04 | Outpatient (CLI) | payer MEDICARE, BC ==
[2017-07-07 17:44] VITALS: BMI 20.5
[~2017-11-10 12:04] MED LIST changes: +CASODEX50 MG PO; +DILAUDID2 MG PO
== END | disposition home or self-care (01) ==
LOC: D.CT 12:04
DX: C61 Malignant neoplasm of prostate (principal); N13.30 Unspecified hydronephrosis; Z12.5 Encounter for screening for malignant neoplasm of prostate

== ENCOUNTER 2017-12-03 06:19 | Observation (INO) | payer MEDICARE, BC ==
[~2017-12-03] VITALS: Ht 188 cm; Wt 72.7 kg
[2017-12-03] VITALS (12 sets, daily range): BP systolic 94–126; BP diastolic 48–65; Ht 188 cm; Wt 72.7 kg
--- NOTE | ~2017-12-03 | OP ---
PATIENT NAME: SHARMIN HERR MEDICAL RECORD: [id number] :33 LOCATION:D.MS [facility] ADMISSION DATE: SURGEON: LUIZ MAYNARD MD DATE OF OPERATION: 12/03/2017 SURGEON: Luiz Maynard MD ANESTHESIA: General anesthesia by Cali Martins CRNA. 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 Tumor is over 2.5 cm in extent in diameter. PROCEDURES: Cystoscopy, transurethral resection of bladder tumor greater than 2.5 cm. FINDINGS: Previous radical prostatectomy. I cannot see either ureteral orifice. The left ureteral orifice area is completely obscured by a large fungating tumor with intratumoral calcification extending over 2.5 cm in diameter of the posterior left bladder wall. SPECIMENS: Bladder tumor resection. ESTIMATED BLOOD LOSS: Minimal. CLINICAL HISTORY: This is an 82-year-old male, who was initially seen in the hospital with gross hematuria. He has a history of prostate cancer treated with radical prostatectomy in the past. He has very severe dementia and he was unable to give details of his medical treatments. In the hospital, his alkaline phosphatase level was found to be elevated. His PSA was 47.76 on 07/07/2017. Chest x-ray showed no nodules in the lungs. However, CT scan of the abdomen and pelvis shows a soft tissue mass at the base of the bladder at the left UV junction level. This is probably recurrent prostate cancer. It is causing severe left hydronephrosis. There are also prominent pelvic and retroperitoneal lymph nodes. Finally, there is a prominent node in the right pulmonary hilus, which is probably a metastatic nodule also. 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 He has seen our oncologist, Dr. Harley. He has been treated with Casodex, Lupron, and Zometa. However, the patient's hydronephrosis and questionable tumor in the bladder needs to be addressed. He is getting that done today. HE IS ALLERGIC TO MORPHINE. This is not a true allergy, but the daughter does not want him to get morphine because it makes his dementia worse. She also requests that he not be given general anesthetic unless absolutely necessary as it makes his dementia worse. DESCRIPTION OF PROCEDURE: The patient was initially given TIVA. I had planned to try to insert a left ureteral stent if possible. He was then placed into dorsal lithotomy position and prepped and draped. A 21-Latvian cystoscope with 30-degree lens was used for visualization. We gave lidocaine jelly into the urethra. The penile urethra was normal with no tumors or strictures. Going in through the external urinary sphincter, he had no prostate. Going into the bladder, we could immediately see a large fungating tumor on the left posterior wall of the bladder. The left ureteral orifice could not be seen. I cannot entirely be sure where the right ureteral orifice is either. Looking at the OPERATIVE REPORT [id number] SHARMIN HERR rest of the bladder, no other tumors were seen. This tumor does not appear to be a typical bladder cancer. I suspect that it is most likely prostate cancer having invaded through the bladder wall. Because he will have to proceed with a bladder tumor resection, I requested that anesthesia give him general anesthetic. I converted to the monopolar resectoscope. We used the 26-Latvian resection loop. Sterile water was used for irrigation. The tumor was completely resected. It invades through the bladder muscle wall. I did not go so deep that I would perforate the bladder. At the end of the procedure, we cauterized any bleeding points. There was really minimal bleeding. The tumor specimens were removed using the [employer] evacuator. Cystoscopy revealed no further tumor chips. The resectoscope was then removed. We placed a 20-Latvian 3-way Escobedo catheter. The balloon was inflated with 20 cc of sterile water. Continuous bladder irrigation with normal saline was started. I will get him admitted to the hospital. This is for management of continuous bladder irrigation. I will also consult interventional radiology to place a left nephrostomy tube tomorrow. If they can, I would like them to try to get an antegrade left ureteral stent in position. Finally, I will ask Dr. Harley to come and see the patient in consultation to determine what else to do about his metastatic prostate cancer. TRANSINT:[id number] Voice Confirmation ID: [id number] DOCUMENT ID: [id number] LUIZ MAYNARD MD at 1259 CC: [id number] DICTATION DATE: 12/03/17 1153 WATER TREATMENT SPECIALIST: 12/03/17 1213 [facility] [address] [facility] [place] [id number]
--- NOTE | ~2017-12-03 | MORECARE ---
CASE MANAGEMENT DISCHARGE SUMMARY PATIENT: SHARMIN HERR UNIT: [id number] ADM DATE: 12/03/17 AGE: 82 : 34 SEX: M ROOM/BED: D.2226 AUTHOR: GIORGI PRICE PHYSICIAN: REFERRING PHYSICIAN: ROMEL MAYNARD MD DATE OF SERVICE: 12/08/17 Discharge Plan Patient Name: SHARMIN [facility]ERR [facility] [facility] 1935 Planned Disposition: Anticipated Discharge Date: Discharge Date: 12/07/2017 Expected LOS: 0 Initial Reviewer: [id number] Initial Review Date: 12/08/2017 Generated: 12/08/17 1:33 pm Patient Name: SHARMIN HERR Page [id number] at 1233 All edits/amendments must be made on the electronic document DICTATION DATE: 12/08/17 1233 CAR BODY MECHANIC: DANNIELLE 12/08/17 1233 RPT#: [id number] DC DATE:12/07/17 STATUS: DIS IN [facility] [address] [place] [address] END OF REPORT
--- NOTE | ~2017-12-03 | HEMODYNAMI ---
PATIENT:SHARMIN HERR MEDICAL RECORD: [id number] : 33 LOCATION:[facility] D.2226 ADMISSION DATE: 12/03/17 Generatedon:12/04/201710:15 Patient name: SHARMIN HERR Patient #: [id number] SSN: D OB: 1935 Date of study: 12/04/2017 Page: Of Hemodynamic Procedure Report Patient Data Patient Demographics Procedure consent was obtained First Name: SHARMIN Gender: Male Last Name: NEMESIO : 1935 Middle Initial: JAIME Age: 82 year(s) Patient #: [id number] Race: Unknown Additional ID: [id number] Contact details Address: [address] [place] [address] State: [place] City: [place] Zip code: [address] Past Medical History Allergies Allergen Reaction Date Comments Reported Morphine 12/04/2017 Admission Admission Data Admission Date: 12/03/2017 Admission Time: 6:19 Room #: D.2226 Height (in.): 74 BSA: 1.98 (m2) Height (cm.): 187.96 BMI: 20.54 (kg/m2) Weight (lbs.): 160 Weight (kg.): 72.57 Procedure Procedure Types Cath Procedure Peripheral Cath Diagnostic Procedure Supervisor Shipfitters Peripheral Procedures Nephro Nephrostomy w/ Ureteral Stent Procedure Description Procedure Date Procedure Date: 12/04/2017 Procedure Start Time: 9:21 Procedure Staff Name Function Tr Carmen MD Performing Physician Karly Barreto RT Act English Tutor Bernice Brown RN Nurse Fabricio Fuchs RT Scrub Procedure Data Cath Procedure Fluoroscopy Diagnostic fluoroscopy Total fluoroscopy Time: 6.8 time: 6.8 min min Diagnostic fluoroscopy Total fluoroscopy dose: 126 dose: 126 mGy mGy Contrast Material Contrast Material Type Amount (ml) Isovue 300 15 Procedure Medications Medication Administration Route Dosage Heparin Flush Bag added to field 2 bags (1000units/500ml NS) Lidocaine 1% added to field 20 unlisted medication 1 Versed I.V. 1 mg Fentanyl I.V. 50 mcg Versed I.V. 1 mg Fentanyl I.V. 50 mcg Hemodynamics Rest BSA: 1.98 (m2) O2 Consumption: Estimated: 228.7 (ml/min) O2 Consumption indexed: Estimated:115.51 (ml/min/m) Heart Rate: 75 (bpm) Snapshots Pre Cath Intra NCS Post Cath Vital Signs Time Heart Resp SPO2 etCO2 NIBP (mmHg) Rhythm Pain Sedation Rate (ipm) (%) (mmHg) Status Level (bpm) 9:10:32 75 10 94 0 135/70(116) NSR 0 (11) 10(A) , No pain 9:14:44 71 13 99 37.1 140/68(111) NSR 0 (11) 10(A) , No pain 9:18:56 75 10 100 37.1 129/68(113) NSR 0 (11) 10(A) , No pain 9:23:08 72 15 100 44.7 127/68(99) NSR 0 (11) 10(A) , No pain 9:27:20 74 11 100 37.9 130/69(112) NSR 0 (11) 8(A) , No pain 9:31:30 70 9 100 35.5 134/71(110) NSR 0 (11) 8(A) , No pain 9:35:41 72 11 100 34.8 138/72(109) NSR 0 (11) 8(A) , No pain 9:39:53 73 12 100 43.9 127/75(102) NSR 0 (11) 8(A) , No pain 9:44:01 78 11 99 43.9 124/75(99) NSR 0 (11) 8(A) , No pain 9:48:11 77 10 99 45.4 128/68(112) NSR 0 (11) 8(A) , No pain 9:52:23 72 11 99 43.1 129/67(101) NSR 0 (11) 8(A) , No pain 9:56:37 72 10 100 33.3 128/63(112) NSR 0 (11) 8(A) , No pain 10:00:47 77 12 99 28 132/73(117) NSR 0 (11) 8(A) , No pain 10:05:05 71 10 99 30.2 129/64(115) NSR 0 (11) 8(A) , No pain 10:09:17 77 12 99 4.5 120/67(101) NSR 0 (11) 8(A) , No pain 10:13:27 75 11 99 12.8 121/65(100) NSR 0 (11) 8(A) , No pain Medications Time Medication Route Dose Verified Delivered Reason Notes Effect iveness by by 9:21:07 Versed I.V. 1 mg Tr Queen for Kermit Brown RN sedation 9:22:33 Fentanyl I.V. 50 Tr Queen for mcg Kermit Brown RN sedation 9:25:51 Heparin Flush added 2 Tr Armando used for Bag to bags Kermit Carmen procedure (1000units/500ml field MD LYN NS) 9:26:04 Lidocaine 1% added 20ml Tr Armando used for to vial Kermit Carmen procedure field MD LYN 9:26:40 CEFEPIME IV 1GM Tr Queen used for Kermit Brown back end engineer 9:58:49 Versed I.V. 1 mg Tr Queen for Kermit Brown RN sedation 9:58:58 Fentanyl I.V. 50 rT Queen for mcg Kermit Brown RN sedation Procedure Log Time Note 8:40:29 Patient Height : 74 inches 8:40:34 Patient Weight : 160 lbs 8:44:52 Time tracking: Regular hours (M-F 7:00 - 5:00) 8:45:10 Use device set IR Diagnostic 8:45:12 Tegaderm 4 x 4 (1626W) opened to sterile field. 8:45:13 Sterile Angiographic Pack opened to sterile field. 8:45:14 Bag Decanter (2002S) opened to sterile field. 8:45:15 CHIBA 22 X 15 needle opened to sterile field. 8:45:16 KIT, INTRODUCER ACCUSTICK II W/C ([id number]) opened to sterile field. 8:45:22 - 9:05:53 GLIDE CATHETER 5FR ANGLED 65cm (CG507) opened to sterile field. 9:08:18 Plan of Care:Hemodynamics will remain stable., Cardiac rhythm will remain stable., Comfort level will be maintained., Respiratory function will remain adequate., Patient/ family verbilizes understanding of procedure., Procedure tolerated without complication., Recovers from procedure without complications.. 9:08:35 Patient received from Med/Surg to IR Alert and oriented. Tansferred to table in Supine position. 9:08:58 Correct patient and procedure confirmed by team. 9:09:09 Signed procedure consent form obtained from patient. 9::17 H&P Date Dictated: 12/04/2017 Within 30 days and on chart.. 9:09:24 ECG and BP/O2 sat monitors applied to patient. 9:09:25 Vital chart was started 9:09:27 Baseline sample Acquired. 9::28 Full Disclosure recording started 9:10:13 - 9:10:15 Pre-procedure instructions explained to patient. 9:10:16 Pre-op teaching completed and patient verbalized understanding. 9:10:30 Family in waiting room. 9:10:35 Patient NPO since Midnight. 9:10:45 Patient allergic to Morphine 9:10:51 Is the patient allergic to Iodine/contrast media? No. 9:10:55 Is patient on blood thinner?No 9:10:57 Patient diabetic? No. 9:11:00 - 9:11:01 ----Pre-sedation anethsthesia assessment.---- 9:11:05 Previous problem with sedation/anesthesia? No ? 9:11:11 Snore? No 9:11:14 Sleep apnea? No 9:11:16 Deviated septum? No 9:11:18 Opens mouth fully? Yes 9:11:20 Sticks out tongue? Yes 9:11:24 Airway obstruction? No ? 9:11:29 Dentures? No ? 9:11:31 - 9:11:44 IV patent on arrival in right forearm with D5/.45%NaCl at O. 9:11:56 Left renal area was prepped with chlora-prep and draped in sterile fashion 9:12:14 - 9:17:44 Physician arrived 9:18:01 --------ALL STOP TIME OUT------ 9:18:02 Final Timeout: patient, procedure, and site verified with staff and physician. All members of the team are in agreement. 9:20:58 Procedure started. 9:21:06 Local anesthetic to Lumbar area with Lidocaine 1% by Tr Carmen MD.INITIAL ACCESS ONLY 9:21:07 Versed 1 mg I.V. was administered by Bernice Brown RN; for sedation; 9::33 Fentanyl 50 mcg I.V. was administered by Bernice Brown RN; for sedation ; ::51 Heparin Flush Bag (1000units/500ml NS) 2 bags added to field was administered by Tr Carmen MD; used for procedure; 9:26:04 Lidocaine 1% 20ml vial added to field was administered by Tr jones MD; used for procedure; 9::40 CEFEPIME 1GM IV was administered by Bernice Kevin RN; used for procedure; 9:43:20 ROADRUNNER .035 145 glide wire (Y74460) opened to sterile field. 9:55:17 [place] Sci 8FR X 26 CM Ureteral Stent ([id number]) opened to sterile field. 9:55:18 INFLATOR BasixTOUCH (GG0333) opened to sterile field. 9:55:19 BAG, DRAINAGE EMPTY 600ML W/GILBERT (EEK495) opened to sterile field. 9:55:21 PEEL-A-WAY INTRODUCER 9FR. opened to sterile field. 9:55:22 STOPCOCK 3-Way Large Bore (H93425) opened to sterile field. 9:55:23 Abscession 8Fr drainage catheter ([id number]) opened to sterile field. 9:56:06 Inflate balloon Inflation number: 1 A Evercross 7 x 4 x 135 Balloon ([id number]) was prepped and advanced across the Undefined1, then inflated to 0 RUBEN for 0:00 (min:sec). 9:56:34 GILLETTE 180cm wire (H55536) opened to sterile field. 9:58:49 Versed 1 mg I.V. was administered by Bernice Brown RN; for sedation; 9:58:58 Fentanyl 50 mcg I.V. was administered by Bernice Brown RN; for sedation ; 10:09:51 Procedure ended.(Physican Out) 10:10:02 Fluoroscopy time 06.80 minutes. 10:10:07 Fluoroscopy dose: 126 mGy 10:10:07 Flurop Dose total: 126 10:10:11 Contrast amount:Isovue 300 15ml. 10:15:16 Report given to Med/Surg. 10:15:19 Procedure and supply charges have been captured, reviewed, submitted an d are correct. 10:15:41 Vital chart was stopped Intervention Summary Intervention Notes Time ActionType Lesion and Equipment Used Action# Pressure Duration Attributes 9:56:06 Inflate Undefined1 Evercross 7 x 4 1 0 00:00 balloon x 135 Balloon ([id number]) Device Usage Item Name Manufacture Quantity Catalog Hospital Part [facility] Lot# / Number Charge Number Stock Stock Serial# Code Tegaderm 4 x 4 3M 1 1626W [id number] 5 (1626W) Sterile Cardinal 1 [id number] 581050 528359 5 Angiographic Health Pack Bag Decanter Microtek 1 2001S 969381 27331 607734 5 () Medical Inc. CHIBA 22 X 15 [facility] 1 [id number] 317996 808205 5 needle KIT, INTRODUCER [place] 1 [id number] 106617 655461 523526 5 ACCUSTICK II Scientific W/C ([id number]) GLIDE CATHETER Terumo 1 CG507 268613 723439 5 5FR ANGLED 65cm (CG507) ROADRUNNER .035 [facility] 1 X12182 200293 777485 957857 5 [id number] 145 glide wire (F48741) [place] Sci 8FR [place] 1 [id number] 533389 391165 792858 5 X 26 CM Scientific Ureteral Stent ([id number]) INFLATOR [facility] 1 FN8659 068611 193028 402230 5 BasixTOUCH (VC9429) BAG, DRAINAGE [facility] 1 BAU243 294201 192423 941819 5 EMPTY 600ML W/GILBERT (HFJ208) PEEL-A-WAY [facility] 1 F82155 167271 547941 523539 5 4798680 INTRODUCER 9FR. STOPCOCK 3-Way [facility] 1 K50636 326946 0100 050868 5 5042319 Large Bore (O50428) Abscession 8Fr Angiodynamics 1 [id number] 716438 877557 661188 5 drainage catheter ([id number]) Evercross 7 x 4 Medtronic 1 [id number] 161400 743829 011591 5 x 135 Balloon ([id number]) GILLETTE 180cm [facility] 1 W60493 881903 577446 5 [id number] wire (A67329) Signature Audit [place] Stage Time Signature Unsigned Intra-Procedure 12/04/2017 Karly Barreto 10:15:38 AM RT(R) [place] [address] [place] [address]
--- NOTE | ~2017-12-03 | HEMODYNAMI ---
PATIENT:SHARMIN HERR MEDICAL RECORD: [id number] : 33 LOCATION:[facility] ADMISSION DATE: 12/03/17 Generatedon:12/07/201710:03 Patient name: SHARMIN HERR Patient #: [id number] SSN: D OB: 1935 Date of study: 12/07/2017 Page: Of Hemodynamic Procedure Report Patient Data Patient Demographics Procedure consent was obtained First Name: SHARMIN Gender: Male Last Name: NEMESIO : 1935 [facility] Initial: JAIME Age: 82 year(s) Patient #: [id number] Race: Unknown Additional ID: [id number] Contact details Address: [address] [place] [address] State: [place] City: [place] Zip code: [address] Past Medical History Allergies Allergen Reaction Date Comments Reported Morphine 12/04/2017 Morphine Other 12/07/2017 Admission Admission Data Admission Date: 12/03/2017 Admission Time: 6:19 Room #: D.2226 Height (in.): 74 BSA: 1.98 (m2) Height (cm.): 187.96 BMI: 20.54 (kg/m2) Weight (lbs.): 160 Weight (kg.): 72.57 Procedure Procedure Types Cath Procedure Peripheral Cath Diagnostic Procedure Nephro Nephrostomy Tube Removal Procedure Description Procedure Date Procedure Date: 12/07/2017 Procedure Start Time: 9:51 Procedure Staff Name Function Spencer Crum MD Performing Physician Sury Samayoa Monitor Bernice Brown RN Nurse Fabricio Fuchs RT Scrub Mercedes Mckeon RN Nurse Procedure Data Cath Procedure Fluoroscopy Diagnostic fluoroscopy Total fluoroscopy Time: 0.7 time: 0.7 min min Diagnostic fluoroscopy Total fluoroscopy dose: 43 dose: 43 mGy mGy Contrast Material Contrast Material Type Amount (ml) Isovue 300 15 Hemodynamics Rest BSA: 1.98 (m2) O2 Consumption: Estimated: 269.28 (ml/min) O2 Consumption indexed : Estimated:136 (ml/min/m) Pre Cath Intra NCS Post Cath Procedure Log Time Note 9:31:22 Patient Height : 74 inches 9:31:22 Patient Weight : 160 lbs 9:33:40 Fabricio Fuchs RT (R) (CV) sent for patient. Start room use. 9:33:45 Time tracking: Regular hours (M-F 7:00 - 5:00) 9:34:06 Plan of Care:Hemodynamics will remain stable., Cardiac rhythm will remain stable., Comfort level will be maintained., Respiratory function will remain adequate., Patient/ family verbilizes understanding of procedure., Procedure tolerated without complication., Recovers from procedure without complications.. 9:40:28 Patient received from Med/Surg to IR Alert and oriented. Tansferred to table in Prone position. 9:43:39 Warm blankets applied for patient comfort. 9:44:11 Correct patient and procedure confirmed by team. 9:44:17 Signed procedure consent form obtained from patient. 9:44:23 Full Disclosure recording started 9:44:50 Family in patients room. 9:44:58 Patient NPO since Midnight. 9:45:17 Patient allergic to Morphine 9:45:32 Is the patient allergic to Iodine/contrast media? No. 9:45:56 ----Pre-sedation anethsthesia assessment.---- 9:46:24 No sedation needed for procdure. 9:46:48 Left Lumbar was prepped with chlora-prep and draped in sterile fashion. 9:46:51 Alarms reviewed . 9:46:53 Sharps counted by scrub and verified . 9:46:55 - 9:50:46 Physician arrived 9:50:47 --------ALL STOP TIME OUT------ 9:50:49 Final Timeout: patient, procedure, and site verified with staff and physician. All members of the team are in agreement. 9:50:58 Lumbar site verified by team. 9:51:13 Sedation plan: None Medication:Lidocaine 9:51:37 Use device set IR Diagnostic 9:51:41 Bag Decanter () opened to sterile field. 9:51:43 Sterile Angiographic Pack opened to sterile field. 9:51:44 Tegaderm 4 x 4 (1626W) opened to sterile field. 9:51:54 Procedure started. 9:54:28 Dr Crum injected existing nephrostomy tube. 9:56:30 GLIDE WIRE ANGLE 180cm (XI4660) opened to sterile field. 9:57:05 The skin stitch is removed. 9:57:56 A 0.35Glidewire is used to remove the existing nephrostomy tube from th e left kidney. 9:58:10 Procedure ended.(Physican Out) 9:58:52 Fluoroscopy time 00.70 minutes. 9:59:00 Flurop Dose total: 43 9:59:00 Fluoroscopy dose: 43 mGy 9:59:08 Contrast amount:Isovue 300 15ml. 9:59:12 Sharps counted by scrub and verified . 9:59:43 Post Lumbar area:stable 9:59:45 4x4 tegaderm dressing placed over lt lumbar area. 9:59:51 Post procedure instruction explained to patient.Patient verbalizes understanding. 9:59:53 Patient needs reinforcement of post procedure teaching. 10:02:23 Procedure and supply charges have been captured, reviewed, submitted an d are correct. 10:02:59 See physician's report for complete and final results. 10:03:05 Report given to Med/Surg. 10:03:11 Patient transfered to Med/Surg with Bed. Device Usage Item Name Manufacture Quantity Catalog Hospital Part Current Minimal Lot# / Number Charge Number Stock Stock Serial# Code Bag Decanter Microtek 1 2001S [id number] 5 (2001S) Medical Inc. Sterile Cardinal 1 [id number] 677305 691744 5 Angiographic Health Pack Tegaderm 4 x 3M 1 1626W 612123 174399 039933 5 4 (1626W) GLIDE WIRE Terumo 1 [id number] 556946 346921 703296 5 ANGLE 180cm (VA9193) Signature Audit [place] Stage Time Signature Unsigned Intra-Procedure 12/07/2017 Sury 10:03:44 AM Danita Signatures Monitor : Sury Signature : Danita Date : Time : [address] [place] [address]
[2017-12-03 06:50] LABS: BASOPHILS 0.4 % (0-2); EOSINOPHILS 1.4 % (0-7); HEMATOCRIT 36.1 % (42.0-54.0); HEMOGLOBIN 12.3 g/dL (13.5-17.5); IMMATURE GRANULOCYTES 0.2 % (0-5); LYMPHOCYTES 44.4 % (15-50); MCH 31.6 pg (26.0-34.0); MCHC 34.1 g/dL (31.0-37.0); MCV 92.8 fL (80.0-100.0); MEAN PLATELET VOLUME 9.4 fL (7.4-10.4); MONOCYTES 8.1 % (2-11); NEUTROPHILS 45.5 % (40-80); PLATELET COUNT 201 10x3/uL (130-400); RBC 3.89 10x6/uL (4.20-6.10); RDW 12.5 % (11.5-14.5); WBC 4.9 10x3/uL (4.8-10.8)
[2017-12-03 07:10] LABS: ANION GAP 14.6 mmol/L (8-16); CALCIUM 8.8 mg/dL (8.5-10.1); CARBON DIOXIDE 26.5 mmol/L (21.0-32.0); CREATININE - SERUM 1.3 mg/dL (0.6-1.3); POTASSIUM - SERUM 4.1 mmol/L (3.5-5.1)
[2017-12-03 07:31] LABS: APTT 31.5 SECONDS (22.8-39.4); INR 0.93 (0.85-1.17); PROTIME 12.1 SECONDS (11.6-15.0)
[2017-12-03] MEDS ORDERED: CASODEX50 MG PO (21:37)
[2017-12-04 05:18] VITALS: BP 104/54
[2017-12-04 06:00] LABS: BASOPHILS 0.3 % (0-2); EOSINOPHILS 1.6 % (0-7); HEMATOCRIT 33.9 % (42.0-54.0); HEMOGLOBIN 11.3 g/dL (13.5-17.5); IMMATURE GRANULOCYTES 0.2 % (0-5); MCH 31.4 pg (26.0-34.0); MCHC 33.3 g/dL (31.0-37.0); MCV 94.2 fL (80.0-100.0); MEAN PLATELET VOLUME 9.7 fL (7.4-10.4); MONOCYTES 7.4 % (2-11); NEUTROPHILS 54.5 % (40-80); PLATELET COUNT 198 10x3/uL (130-400); RDW 12.6 % (11.5-14.5); WBC 6.5 10x3/uL (4.8-10.8)
[2017-12-04 06:07] LABS: APTT 29.1 SECONDS (22.8-39.4); INR 0.91 (0.85-1.17); PROTIME 11.9 SECONDS (11.6-15.0)
[2017-12-04 06:11] LABS: ANION GAP 12.5 mmol/L (8-16); CALCIUM 8.2 mg/dL (8.5-10.1); CARBON DIOXIDE 26.9 mmol/L (21.0-32.0); CREATININE - SERUM 1.5 mg/dL (0.6-1.3); POTASSIUM - SERUM 4.4 mmol/L (3.5-5.1)
[2017-12-04 21:00] VITALS: BP 112/55
[2017-12-05 09:40] VITALS: BP 157/83
[2017-12-05 10:47] LABS: ANION GAP 13.4 mmol/L (8-16); CALCIUM 8.2 mg/dL (8.5-10.1); CREATININE - SERUM 1.4 mg/dL (0.6-1.3); POTASSIUM - SERUM 4.4 mmol/L (3.5-5.1)
[2017-12-05 16:36] VITALS: BP 136/69
[2017-12-05 20:05] VITALS: BP 128/66
[2017-12-06 05:25] VITALS: BP 148/88
[2017-12-06 08:24] VITALS: BP 121/62
[2017-12-06 14:21] VITALS: BP 123/69
[2017-12-06 20:36] VITALS: BP 130/68
[2017-12-07] VITALS: BP 136/89
[2017-12-07 06:23] VITALS: BP 130/79
[2017-12-07 07:43] VITALS: BP 131/73
[2017-12-07 08:42] LABS: ALBUMIN 3.2 g/dL (3.4-5.0); ANION GAP 12.2 mmol/L (8-16); BILIRUBIN - TOTAL 0.74 mg/dL (0.2-1.3); CALCIUM 9.1 mg/dL (8.5-10.1); CARBON DIOXIDE 28.1 mmol/L (21.0-32.0); CREATININE - SERUM 1.3 mg/dL (0.6-1.3); POTASSIUM - SERUM 4.3 mmol/L (3.5-5.1); PROTEIN - SERUM 6.7 g/dL (6.4-8.2)
[2017-12-07 16:32] VITALS: BP 144/68
== END 2017-12-07 17:08 | disposition home or self-care (01) ==
LOC: D.MS 06:19 → D.OPS 06:19 → D.PAN 09:30 → D.MS 10:09 → D.OPS 10:09 → D.PAN 10:15 → D.OPS 10:15 → D.MS 11:44 → OBSVTIME 11:44 → D.MS 12:08 → D.OPS 12:08 → D.MS 12-07 09:57 → D.OPS 12-07 09:57 → D.MS 12-07 10:00
PROVIDERS: Anesthesiology; General Practice; Radiology Diagnostic Radiology; Urology
DX: C61 Malignant neoplasm of prostate (principal); R31.0 Gross hematuria; N13.1 Hydronephrosis with ureteral stricture, not elsewhere classified; C79.51 Secondary malignant neoplasm of bone; F03.90 Unspecified dementia, unspecified severity, without behavioral disturbance, psychotic disturbance, mood disturbance, and anxiety

== ENCOUNTER 2018-03-09 05:50 | Day surgery (SDC) | payer MEDICARE, BC ==
[~2018-03-09] VITALS: Ht 188 cm; Wt 77.1 kg
[2018-03-09 05:34] LABS: BASOPHILS 0.6 % (0-2); EOSINOPHILS 1.9 % (0-7); HEMATOCRIT 36.2 % (42.0-54.0); HEMOGLOBIN 12.5 g/dL (13.5-17.5); IMMATURE GRANULOCYTES 0.4 % (0-5); LYMPHOCYTES 51.7 % (15-50); MCH 31.7 pg (26.0-34.0); MCHC 34.5 g/dL (31.0-37.0); MCV 91.9 fL (80.0-100.0); MEAN PLATELET VOLUME 9.7 fL (7.4-10.4); MONOCYTES 8.2 % (2-11); NEUTROPHILS 37.2 % (40-80); PLATELET COUNT 226 10x3/uL (130-400); RBC 3.94 10x6/uL (4.20-6.10); RDW 12.8 % (11.5-14.5); WBC 5.2 10x3/uL (4.8-10.8)
[2018-03-09 05:47] LABS: INR 0.98 (0.85-1.17); PROTIME 12.5 SECONDS (11.6-15.0)
[~2018-03-09 05:50] MED LIST changes: +XTANDI40 MG PO
[2018-03-09 06:03] LABS: CALCIUM 9.1 mg/dL (8.5-10.1); CARBON DIOXIDE 24.2 mmol/L (21.0-32.0); CREATININE - SERUM 1.6 mg/dL (0.6-1.3); POTASSIUM - SERUM 4.2 mmol/L (3.5-5.1)
[2018-03-09 06:35] VITALS: Ht 188 cm; Wt 77.1 kg
--- NOTE | 2018-03-09 09:03 | OP ---
PATIENT NAME: SHARMIN HERR MEDICAL RECORD: [id number] :34 LOCATION:D.OPS ADMISSION DATE: SURGEON: LUIZ MAYNARD MD DATE OF OPERATION: 03/09/2018 SURGEON: Luiz Maynard MD ANESTHESIA: General anesthesia by Jd Mejia CRNA. PROCEDURE: Cystoscopy, removal of old left ureteral stent, left retrograde pyelogram, left ureteral stent insertion 6-Kenyan x 26 cm with a metal Cook Resonance stent. FINDINGS: On cystoscopy, inflamed tissue around left ureteral orifice. No bladder tumors were seen. There is left hydroureteronephrosis with a very irregular ureteral wall contour. SPECIMENS: Old left ureteral stent. ESTIMATED BLOOD LOSS: None. CLINICAL HISTORY: This is an 82-year-old male who has prostate cancer treated with radical prostatectomy. His PSA has been rising. On cystoscopy, he had a mass obstructing his left ureter. I resected this mass and it was prostate cancer on pathology. At that time, interventional radiology placed a left ureteral stent by a nephrostomy access. The stent has been in for 3 months' time. In the meantime, he has been treated by Dr. Harley with Lupron and extend the Zometa. He comes now to have the stent changed for a metal stent. The metal stent resists tumor compression better and also can stay in the patient for up to 1 year. HE IS ALLERGIC TO MORPHINE. He was given Ancef motion picture operator to the OR. DESCRIPTION OF PROCEDURE: The patient was given induction of general anesthesia. He was then placed into dorsal lithotomy position and prepped and draped. A 21-Kenyan cystoscope with 30-degree lens was used for visualization. He has normal penile urethra with no strictures. The prostatic urethra was absent. Going into the bladder neck, we saw the old ureteral stent in place. It was surrounded by some inflammatory tissue. The flexible grasper was placed around the old ureteral stent and the tip of the stent was brought out through the urethral meatus. On examining the stent, it appears to be calcified in the lumen and we cannot pass the guidewire through the lumen. Therefore, the stent was removed entirely. We then inserted a 5-Kenyan open-ended ureteral catheter into the left ureteral orifice. A retrograde pyelogram was performed. I had wondered if the hydronephrosis would have resolved with the chemotherapy in the interim. It turns out that he still has quite significant hydroureteronephrosis. Therefore, through the lumen of the open-ended ureteral catheter, we inserted a Sensor wire up into the renal pelvis. Once the wire was in correct position, the open-ended ureteral catheter was removed. We then inserted the ureteral catheter and ureteral sheath from the [employer] system. Once the radiopaque marker identified that the sheath was at the UP junction level, the Sensor wire and the ureteral catheter were removed entirely. Through the lumen of the sheath, we inserted the solid metal stent. When the stent was in correct position, we slowly withdrew the sheath keeping in position with the ureteral catheter. At the end of the procedure, both the proximal and distal coils were in the right places. Fluoroscopy confirmed that the stent was OPERATIVE REPORT [id number] SHARMIN HERR in good position. The bladder was emptied through the cystoscope and then the scope was removed. I will see the patient in followup in 1 year's time to arrange for a change of the ureteral stent. TRANSINT:[id number] Voice Confirmation ID: [id number] DOCUMENT ID: [id number] LUIZ MAYNARD MD at 0903 CC: [id number] DICTATION DATE: 03/09/18 0843 LIQUOR TESTER: 03/09/18 0900 PRE [facility] [address] [place] [address]
--- NOTE | 2018-03-09 13:50 | NUR ---
1020 AMBULATORY TO BATHROOM USING CANE. VOIDED URINE BROWNISH TINTED. BUBBLES NOTED IN FLUID IN BOWL AFTER VOIDING. NO CLOTS NOTED. WHEN ASKED, PT AGREES HE FEELS HE HAS EMPTIED BLADDER. IV DC'ED WITH CATH INTACT. NO BLEEDING FROM IV SITE. DRESSING. Madison QIU R.N. 1040 DRESSED, AWAKE, & ALERT. GIVEN DISCHARGE INFORMATION INCLUDING: MED REC, INFORMATION RELATED TO FOLLOW UP WITH DR. MAYNARD, [facility] DISCHARGE INSTRUCTIONS, & POST CYSTOSCOPYD/C INSTRUCTIONS. PT VOICED UNDERSTANDING. TO PRIVATE CAR PER WHEELCHAIR BY VOLUNTEER. HOME WITH DAUGHTER & SON-IN-LAW. Madison QIU R.N.
== END 2018-03-09 10:40 | disposition home or self-care (01) ==
LOC: D.OPS 05:50 → D.PAN 07:30 → D.OPS 07:30
PROVIDERS: Anesthesiology
DX: N13.5 Crossing vessel and stricture of ureter without hydronephrosis (principal); C61 Malignant neoplasm of prostate

== ENCOUNTER → 2018-12-03 09:27 | Outpatient (CLI) | payer MEDICARE, BC ==
[2018-03-09 06:35] VITALS: BMI 21.8
== END | disposition home or self-care (01) ==
LOC: D.NM 09:27
PROVIDERS: ATTEND Clinical Nurse Specialist Family Health
DX: Z96.651 Presence of right artificial knee joint (principal)

== ENCOUNTER → 2019-02-07 17:17 | Outpatient (CLI) | payer MEDICARE, BC ==
[2018-03-09 06:35] VITALS: BMI 21.8
== END | disposition home or self-care (01) ==
LOC: D.LABREF 17:17
PROVIDERS: ATTEND Urology
DX: R82.90 Unspecified abnormal findings in urine (principal); R31.9 Hematuria, unspecified

== ENCOUNTER → 2019-03-08 05:24 | Day surgery (SDC) | payer MEDICARE, BC ==
[~2019-03-08] VITALS: Ht 188 cm; Wt 77.1 kg
[2019-03-08 06:01] LABS: BASOPHILS 0.5 % (0-2); EOSINOPHILS 1.4 % (0-7); HEMATOCRIT 36.1 % (42.0-54.0); HEMOGLOBIN 12.1 g/dL (13.5-17.5); IMMATURE GRANULOCYTES 0.2 % (0-5); LYMPHOCYTES 46.1 % (15-50); MCH 31.9 pg (26.0-34.0); MCHC 33.5 g/dL (31.0-37.0); MCV 95.3 fL (80.0-100.0); MEAN PLATELET VOLUME 9.6 fL (7.4-10.4); MONOCYTES 8.7 % (2-11); NEUTROPHILS 43.1 % (40-80); PLATELET COUNT 240 10x3/uL (130-400); RBC 3.79 10x6/uL (4.20-6.10); RDW 12.1 % (11.5-14.5); WBC 4.4 10x3/uL (4.8-10.8)
[2019-03-08 06:05] LABS: APTT 33.6 SECONDS (22.8-39.4); INR 0.9 (0.85-1.17); PROTIME 12.1 SECONDS (11.6-15.0)
[2019-03-08 06:22] LABS: ANION GAP 10.6 mmol/L (8-16); CALCIUM 9.1 mg/dL (8.5-10.1); CARBON DIOXIDE 26.3 mmol/L (21.0-32.0); CREATININE - SERUM 1.6 mg/dL (0.6-1.3); POTASSIUM - SERUM 3.9 mmol/L (3.5-5.1)
[2019-03-08 06:24] VITALS: Ht 188 cm; Wt 77.1 kg
--- NOTE | 2019-03-08 12:58 | OP ---
PATIENT NAME: SHARMIN HERR MEDICAL RECORD: [id number] :34 LOCATION:D.[facility] ADMISSION DATE: SURGEON: LUIZ MAYNARD MD DATE OF OPERATION: 03/08/2019 SURGEON: Luiz Maynard MD ANESTHESIA: TIVA by Avani Brian CRNA. DIAGNOSIS: Prostate cancer with left hydroureteronephrosis. PROCEDURE: Cystoscopy, left ureteral stent removal, left retrograde pyelogram, insertion of left ureteral stent 6-Martiniquais x 26 cm Cook Resonance metal stent. BLOOD LOSS: None. CLINICAL HISTORY: This is an 83-year-old male, who has metastatic prostate cancer, post radical prostatectomy. He is currently on chemotherapy. His PSA continues to rise at 22. He has a known left hydronephrosis from left distal ureteral obstruction by prostate cancer. He has a metal stent in there, which was placed over 1 year ago. He comes now to have that metal stent exchange for a new one. I will also do a retrograde pyelogram to see if he still needs to have a new stent placed. HE IS ALLERGIC TO MORPHINE. He was given Ancef coroner's juror to the OR. DESCRIPTION OF PROCEDURE: The patient was given IV sedation. He was then placed into the low dorsal lithotomy position and prepped and draped. Cystoscopy was performed using a 21-Martiniquais cystoscope. He has a previous radical prostatectomy. Bladder neck is wide open. The old stent was seen and removed entirely using grasping forceps. It was sent to pathology for identification only. An open-ended ureteral catheter was then placed into the left ureteral orifice. Diluted contrast was injected and we sought hydroureteronephrosis down to a distal ureteral stricture at the intramural portion of the ureter. A Sensor wire was then placed up into the renal pelvis through the lumen of the open-ended ureteral catheter. The open-ended catheter was then removed entirely, leaving the wire in place. Over the wire, we inserted the ureteral catheter and sheath of the [employer] Resonance system. Once the radiopaque marker of the sheath was at the UP junction, then the Sensor wire and the ureteral catheter were removed entirely. The metal Resonance stent was pushed up through the sheath into the renal pelvis. The stent was in correct position and the sheath was withdrawn entirely, leaving the stent in place. The bladder was emptied through the cystoscope. I will see the patient in followup in 2 weeks' time to check to make sure there is no urine infections. TRANSINT:[id number] Voice Confirmation ID: [id number] DOCUMENT ID: [id number] LUIZ MAYNARD MD at 1258 CC: [id number] DICTATION DATE: 03/08/1935 GLOST KILN PLACER: 03/08/19 1256 [address] [place] [id number] [place] [id number]
--- NOTE | 2019-03-08 16:34 | NUR ---
1125 DRESSED, AWAKE & ALERT. GIVEN DISCHARGE INFORMATION INCLUDING: MED REC, RTC APPT., [facility] D/C INSTRUCTIONS & POST CYSTOSCOPY D/C INSTRUCTIONS. PT & DAUGHTER VOICED UNDERSTANDING. TO PRIVATE CAR PER WHEELCHAIR BY VOLUNTEER. HOME WITH DAUGHTER. Madison QIU R.N.
== END | disposition home or self-care (01) ==
LOC: D.OPS 05:24 → D.PAN 08:00 → D.OPS 08:30
PROVIDERS: Anesthesiology; ATTEND Urology
DX: C61 Malignant neoplasm of prostate (principal); N13.30 Unspecified hydronephrosis

== ENCOUNTER → 2019-03-16 09:22 | Outpatient (CLI) | payer MEDICARE, BC ==
[2019-03-08 06:24] VITALS: BMI 21.8
== END | disposition home or self-care (01) ==
LOC: D.CT 09:22
PROVIDERS: ATTEND Internal Medicine Hematology & Oncology
DX: C61 Malignant neoplasm of prostate (principal); C40.20 Malignant neoplasm of long bones of unspecified lower limb

== ENCOUNTER → 2019-03-18 08:06 | Outpatient (CLI) | payer MEDICARE, BC ==
[2019-03-08 06:24] VITALS: BMI 21.8
== END | disposition home or self-care (01) ==
LOC: D.NM 08:06
PROVIDERS: ATTEND Internal Medicine Hematology & Oncology
DX: C61 Malignant neoplasm of prostate (principal); C79.51 Secondary malignant neoplasm of bone; C40.20 Malignant neoplasm of long bones of unspecified lower limb; R31.0 Gross hematuria

== ENCOUNTER → 2019-04-13 18:12 | Outpatient (CLI) | payer MEDICARE, BC ==
[2019-04-02 15:00] VITALS: BMI 21.9
[~2019-04-13 18:12] MED LIST changes: +GABAPENTIN300 MG PO; +SMZ-TMP DS TABL1 TAB PO; +ZYVOX600 MG PO
== END | disposition home or self-care (01) ==
LOC: D.LABREF 18:12
PROVIDERS: ATTEND Urology
DX: N39.0 Urinary tract infection, site not specified (principal)

== ENCOUNTER 2019-06-25 18:37 | Inpatient (IN) | payer MEDICARE, BC ==
[~2019-06-25] VITALS: Ht 188 cm; Wt 72.6 kg
--- NOTE | 2019-06-25 19:07 | NUR ---
PT LEFT ED VIA STRETCHER FOR CT
--- NOTE | 2019-06-25 19:25 | NUR ---
PT RETURNED TO ED VIA STRETCHER FROM CTY
--- NOTE | 2019-06-25 19:32 | NUR ---
PT RATES PAIN 6/10 AT THIS TIME. PT REFUSING ORDERED PO NORCO. PT STATES "I WILL WAIT AND SEE HOW I DO WITHOUT IT". PT AWAKE AND ALERT.
[2019-06-25 19:36] LABS: HEMATOCRIT 39.8 % (42.0-54.0); HEMOGLOBIN 13.3 g/dL (13.5-17.5); LYMPHOCYTES 27.2 % (15-50); MCH 31.7 pg (26.0-34.0); MCHC 33.4 g/dL (31.0-37.0); MEAN PLATELET VOLUME 8.6 fL (7.4-10.4); NEUTROPHILS 64.1 % (40-80); RBC 4.19 10x6/uL (4.20-6.10); WBC 6.2 10x3/uL (4.8-10.8)
[2019-06-25 19:37] LABS: PLATELET COUNT 276 10x3/uL (130-400)
[2019-06-25 19:47] LABS: ANION GAP 14.3 mmol/L (8-16); CALCIUM 9.4 mg/dL (8.5-10.1); CARBON DIOXIDE 23.7 mmol/L (21.0-32.0); CREATININE - SERUM 1.1 mg/dL (0.6-1.3)
[2019-06-25 19:53] LABS: ALBUMIN 3.8 g/dL (3.4-5.0); BILIRUBIN - TOTAL 1.57 mg/dL (0.2-1.3); PROTEIN - SERUM 8.1 g/dL (6.4-8.2)
[2019-06-25 20:00] VITALS: BP 166/86
--- NOTE | 2019-06-25 20:04 | NUR ---
IN/OUT CATH PERFORMED ON PT. PT TOLERATED WELL.
[2019-06-25 20:06] LABS: BILIRUBIN NEGATIVE (NEGATIVE); GLUCOSE NEGATIVE (NEGATIVE); KETONE NEGATIVE (NEGATIVE); NITRITE NEGATIVE (NEGATIVE); UROBILINOGEN NORMAL (NORMAL)
--- NOTE | 2019-06-25 20:50 | NUR ---
PT RESTING ON BED. NO S/S OF ACUTE DISTRESS NOTED. PT DENIES FURTHER NEEDS. PT UPDATED ON POC.
--- NOTE | 2019-06-25 21:18 | NUR ---
PT ARRIVED ON UNIT VIA STRETCHER ESCORTED BY ER NURSE. TRANSFERRED TO BED AND POSITIONED FOR COMFORT...PLACED GOWN ON AND PADDED BOTH SIDES OF BACK WITH PILLOWS PT C/O PAIN IN BACK FROM LYING ON FLOOR ALL DAY AT HOME. IV TO RIGHT FA SALINE LOCKED.
--- NOTE | 2019-06-25 21:35 | NUR ---
GAVE NORCO PO PER PRN ORDER, PER REQUEST FOR MEDICATION FOR PAIN. WILL MONITOR FOR EFFECTIVENESS.
[2019-06-25 22:41] VITALS: BP 178/99; BMI 20.5
--- NOTE | 2019-06-25 22:47 | NUR ---
ADMISSION ASSESSMENT AND HISTORY COMPLETE.
--- NOTE | 2019-06-25 22:52 | NUR ---
PLACED SCD'S ON BLE PER ORDER.
[2019-06-26] VITALS: BP 132/79
[2019-06-26] MEDS ORDERED: GABAPENTIN300 MG PO (01:39)
[2019-06-26] MEDS ORDERED: KENALOG 0.1 % 115 GM TOPICAL (01:39)
[2019-06-26] MEDS ORDERED: HYDROCODON-ACE1 EAC7 PO (01:39)
[2019-06-26 04:00] VITALS: BP 141/73
[2019-06-26 05:54] LABS: HEMATOCRIT 36.5 % (42.0-54.0); HEMOGLOBIN 12.6 g/dL (13.5-17.5); MCH 32.8 pg (26.0-34.0); MCHC 34.5 g/dL (31.0-37.0); MCV 95.1 fL (80.0-100.0); MEAN PLATELET VOLUME 9.4 fL (7.4-10.4); NEUTROPHILS 61.2 % (40-80); PLATELET COUNT 253 10x3/uL (130-400); RBC 3.84 10x6/uL (4.20-6.10); WBC 6.3 10x3/uL (4.8-10.8)
[2019-06-26 06:11] LABS: ALBUMIN 3.3 g/dL (3.4-5.0); ALKALINE PHOSPHATASE 111 U/L (30-120); BILIRUBIN - TOTAL 1.45 mg/dL (0.2-1.3); CALC OSMOLALITY 278 mosm/kg (275-300); CARBON DIOXIDE 22.3 mmol/L (21.0-32.0); CHLORIDE - SERUM 105 mmol/L (98-107); GLUCOSE 97 mg/dL (74-106); MAGNESIUM - SERUM 2.3 mg/dL (1.8-2.4); PHOSPHOROUS 3.3 mg/dL (2.5-4.9); POTASSIUM - SERUM 3.9 mmol/L (3.5-5.1); SODIUM 138 mmol/L (136-145); UREA NITROGEN 21 mg/dL (7-18); eGFR NON AFRICAN AMERICAN 75 mL/min (90-120)
[2019-06-26 06:15] LABS: ALT (SGPT) 13 U/L (10-68)
--- NOTE | 2019-06-26 07:21 | NUR ---
RECEIVED PT FROM CIVIL ENGINEER LAND DEVELOPMENT. UPON ENTERING, PT WAS AWAKE LAYING IN BED. PT IS ON ROOM AIR WITH A RIGHT FOREARM IV, SALINE LOCKED. BED ALARM, YELLOW GOWN, AND BLUE SOCKS ON FOR FALL PRECAUTIONS. PT IS UP WITH ASSIST, WEARS SCD'S FOR DVT PROTOCOL. PT HAS A JAIL EVALUATION IN. DENIES ANY NEEDS. BED IN LOWEST POSITION, BED RAILS X2, CALL LIGHT WITHIN REACH. WILL CONTINUE TO MONITOR.
[2019-06-26 08:32] VITALS: BP 160/73
--- NOTE | 2019-06-26 09:13 | NUR ---
PT ON BEDSIDE EATING BREAKFAST. STAND BY ASSIST WHILE PT USED URINAL. ASSESSMENT PERFORMED AT THIS TIME. DENIES ANY NEEDS AT THIS TIME. WILL CONTINUE TO MONITOR.
[2019-06-26 12:40] VITALS: BP 120/60
--- NOTE | 2019-06-26 13:37 | NUR ---
PT UP WITH PHYSICAL THERAPY, AMBULATED DOWN THE FLANNERY AND BACK. AMBULATED WELL. RESTING COMFORTABLY IN BED. DENIES ANY NEEDS AT THIS TIME. WILL CONTINUE TO MONITOR.
--- NOTE | 2019-06-26 16:00 | NUR ---
PT RESTING COMFORTABLY IN BED. UNHOOKED SCD'S BECAUSE PT KEPT FEELING LIKE HE WAS TANGLED UP. DENIES ANY NEEDS. BED IN LOWEST POSITION, BED RAILS X2, CALL LIGHT WITHIN REACH. WILL CONTINUE TO MONITOR.
--- NOTE | 2019-06-26 16:39 | NUR ---
I have reviewed this patient and I concur with the Shift Assessment completed by the Licensed Practical Nurse today this shift.
--- NOTE | 2019-06-26 17:01 | NUR ---
ADMINISTEREDM PRN NORCO FOR PAIN 10/10 IN CHEST IN BACK. PT IS CONFUSED AND CONTINUES TO ASK WHEN HE GOT HERE AND HOW. UP RIGHT ON BEDSIDE ABLE TO EAT DINNER AND FEED SELF. DENIES ANY NEEDS AT THIS TIME. WILL CONTINUE TO MONITOR.
[2019-06-26 17:37] VITALS: BP 140/70
--- NOTE | 2019-06-26 19:00 | NUR ---
BEDSIDE REPORT RECEIVED AND CARE OF PT ASSUMED. PT LYING IN SUPINE POSITION WATCHING TV. IV TO RIGHT FA SALINE LOCKED. WILL MONITOR FOR NEEDS.
[2019-06-26 20:01] VITALS: BP 125/71
--- NOTE | 2019-06-26 21:06 | NUR ---
HS MEDS...GAVE NORCO PER REQUEST FOR BACK PAIN. WILL MONITOR FOR EFFECTIVENESS.
[2019-06-27] VITALS: BP 130/67
[2019-06-27 04:00] VITALS: BP 136/72
--- NOTE | 2019-06-27 07:49 | NUR ---
PT SITTING UP IN CHAIR AT BEDSIDE, STATED HE IS READY TO GO HOME, EXPLAINED TO PT THAT HE STILL NEEDS TO BE SEEN BY DOCTOR THIS MORNING AND THAT HE IS IN THE HOSPITAL, PT GOT UP FROM CHAIR AND MOVED TO BED, IV IN RT FA IS SL, SITE IS CDI, PT IS CONFUSED BUT PLEASANT, EASY TO REORIENT, CONTINUE WITH PLAN OF CARE
[2019-06-27 08:07] VITALS: BP 120/62
--- NOTE | 2019-06-27 09:36 | NUR ---
I have reviewed this patient and I concur with the Shift Assessment completed by the Licensed Practical Nurse today this shift.
--- NOTE | 2019-06-27 09:43 | NUR ---
PT LYING IN BED WATCHING TV, ADMINISTERED SCHEDULED LOVENOX SHOT TO LEFT LOWER ABDOMEN., PT TOLERATED WELL, NO S/SX OF DISTRESS, NO NEEDS VOICED, CONTINUE WITH PLAN OF CARE
--- NOTE | 2019-06-27 10:19 | NUR ---
Rehab Note- Acute Inpatient Rehab prescreen order received. The patient is possibly a good inpatient acute rhab candidate if in agreeance with an acute inpatient rehab stay. Will follow at this time. Thank you for this referral! Maddie Mckeon RN Clinical Liaison, [facility] Rehab
[2019-06-27 11:50] VITALS: BP 136/74
[2019-06-27 12:28] VITALS: Ht 188 cm; Wt 72.6 kg
--- NOTE | 2019-06-27 13:48 | NUR ---
PT LYING IN BED STATED PAIN IS AT A 10 WHEN ASKED IF HAVING ANY PAIN, TOLD PT IF HE NEEDED TO HE MAY HAVE A PAIN PILL, PT REQUESTED PRN MEDICATION, ADMINISTERED AND WILL REASSESS PAIN LEVEL. NO OTHER NEEDS VERBALIZED, CONTINUE WITH PLAN OF CARE
--- NOTE | 2019-06-27 14:43 | MORECARE ---
CASE MANAGEMENT DISCHARGE SUMMARY PATIENT: SHARMIN HERR UNIT: [id number] ADM DATE: 06/25/19 AGE: 84 : 34 SEX: M ROOM/BED: D.2234 AUTHOR: GIORGI PRICE PHYSICIAN: REFERRING PHYSICIAN: TRISTON CASTELLANO MD DATE OF SERVICE: 06/27/19 Discharge Plan Patient Name: SHARMIN HERR Facility: [facility]:[place] : 1935 Planned Disposition: Anticipated Discharge Date: Discharge Date: Expected LOS: Initial Reviewer: [email or web address] Initial Review Date: 06/27/2019 Generated: 06/27/19 3:42 pm Comments DCP- Discharge Planning Updated by [email or web address]: Yoana Abdullahi on 06/27/19 1:[address] Patient Name: SHARMIN HERR Admission Status: ER Accout number: [id number] Admission Date: 06-25-2019 : 1935 Admission Diagnosis: Attending: TRISTON CASTELLANO Current LOS: 2 Anticipated DC Date: Planned Disposition: Primary Insurance: MEDICARE A & B Discharge Planning Comments: CM met with patient at bedside after explaining CM role and obtaining verbal consent. CM discussed availability / needs of home health, REHAB and medical equipment. STATES HAS EQUIPMENT AT HOME. LIVES ALONE AND [facility] COMES TO HIS HOME. WANTS ME TO COME BACK AND SEE HIM AFTER DR. CASTELLANO VISITS WITH HIM. INPATIENT REHAB PRESCREEN WAS ORDERED. CM TO FOLLOW AND ASSIST. Derrick Operator: Yoana Abdullahi DCPIA - Discharge Planning Initial Assessment Updated by [email or web address]: Yoana Abdullahi on 06/27/19 2:37 pm * Is the patient Alert and Oriented? Yes * PCP GRAY * Preadmission Environment Home Alone * ADLs Independent * Other Equipment WALKER * Please name any agencies selected above. GROUND TRANSPORTATION OPERATOR [facility] * Has this patient been hospitalized within the prior 30 days at any hospital? No Patient Name: SHARMIN HERR Page [phone] at 5464 All edits/amendments must be made on the electronic document DICTATION DATE: 06/27/19 144 CHILD WELFARE COUNSELOR: DANNIELLE 06/27/19 144 RPT#: [id number] DC DATE: STATUS: ADM IN [facility] [address] [facility] [place] [address] END OF REPORT
[2019-06-27 16:06] VITALS: BP 93/63
--- NOTE | 2019-06-27 19:00 | NUR ---
BEDSIDE REPORT RECEIVED AND CARE OF PT ASSUMED. PT LYING IN LOW MATTA'S POSITION. STATES PAIN WELL CONTROLLED AT THIS TIME AND THAT HE IS FEELING BETTER. IV TO RIGHT FA SALINE LOCKED. BED ALARM IN USE. WILL MONITOR FOR NEEDS.
[2019-06-27 19:38] VITALS: BP 149/68
--- NOTE | 2019-06-27 20:05 | NUR ---
GAVE NORCO PO PER REQUEST FOR BEDTIME, FOR SLEEP / PAIN RELIEF. WILL CONTINUE TO MONITOR CLOSELY FOR NEEDS.
[2019-06-28 00:10] VITALS: BP 146/64
[2019-06-28 04:00] VITALS: BP 121/69
--- NOTE | 2019-06-28 07:34 | NUR ---
PT LYING IN BED STATED HE DID NOT HAVE A VERY GOOD NIGHT AND WAS HURTING IN HIS BACK A LOT. PT LAST PRN MEDICATION WAS AT 0200. ADVISED PT I WILL BRINMG PAIN MEDICATION WITH HIS MORNING MEDICATION, LUNG SOUNDS CTA, IV IN RT FA SL, PATENT, PT MORE ALERT AND ORIENTED TODAY THAN YESTERDAY YET STILL CONFUSED AT TIMES, NO OTHER NEEDS VOICED, WILL CONTINUE WITH PLAN OF CARE
[2019-06-28 09:03] VITALS: BP 129/76
--- NOTE | 2019-06-28 10:52 | NUR ---
I have reviewed this patient and I concur with the Shift Assessment completed by the Licensed Practical Nurse today this shift.
[2019-06-28 12:48] VITALS: BP 117/70
--- NOTE | 2019-06-28 14:09 | NUR ---
PT LYING IN BED AFTER LUNCH, C/O BACK PAIN IN MID TO LOWER BACK, ADMINISTERED PRN PAIN MEDICATION. NO OTHER NEEDS AT THIS TIME, CONTINUE WITH PLAN OF CARE
--- NOTE | 2019-06-28 14:20 | NUR ---
No skin impairments noted. Pt is ambulatory and can follow instructions. Wound care will monitor as needed.
--- NOTE | 2019-06-28 16:13 | NUR ---
OT NOTE: PT COMPLETED SUPINE TO SIT AT EOB WITH SBA. PT COMPLETED SITTING BALANCE AT EOB WITH SBA. PT COMPLETED HAND HYGIENE WITH SETUP. PT IS CONFUSED BUT COOPERATIVE. 136-2 THANK YOU,OLAMIDE LI
[2019-06-28 17:39] VITALS: BP 120/67
--- NOTE | 2019-06-28 19:40 | NUR ---
PT SITTING UP IN BED WITHOUT DISTRESS. STATES PAIN TO LOWER BACK, GAVE NORCO ORDERED. ASSISTED PT WITH WALKER TO BATHROOM AND BACK. DENIES OTHER NEEDS. CL IN REACH, WILL CTM
[2019-06-28 21:06] VITALS: BP 119/62
[2019-06-29 00:55] VITALS: BP 120/74
[2019-06-29 06:10] VITALS: BP 135/65
--- NOTE | 2019-06-29 06:55 | NUR ---
UP IN BATHROOM. ASSISTED PATIENT BACK TO BED. NO C/O PAIN. NO S/S OF ACUTE DISTRESS NOTED. GETACHEW ALARM ON. [place]. SCDS/LOVENOX. IV TO RIGHT FOREARM, SL. SITE PATENT WITHOUT REDNESS OR SWELLING. AWAITING REHAB PLACEMENT. DENIES ANY NEEDS AT THIS TIME. CALL LIGHT IN REACH. WILL CONTINUE TO MONITOR.
[2019-06-29 08:00] VITALS: BP 122/76
--- NOTE | 2019-06-29 09:29 | MORECARE ---
CASE MANAGEMENT DISCHARGE SUMMARY PATIENT: SHARMIN HERR UNIT: [id number] ADM DATE: 06/25/19 AGE: 84 : 34 SEX: M ROOM/BED: D.2234 AUTHOR: DEEDOC PHYSICIAN: REFERRING PHYSICIAN: TRISTON CASTELLANO MD DATE OF SERVICE: 06/29/19 Discharge Plan Patient Name: SHARMIN HERR Facility: [facility]:[place] : 1935 Planned Disposition: Anticipated Discharge Date: Discharge Date: Expected LOS: Initial Reviewer: [email or web address] Initial Review Date: 06/27/2019 Generated: 06/29/19 10:29 am Comments DCP- Discharge Planning Updated by [email or web address]: Yoana Abdullahi on 06/29/19 8:[address] Patient Name: SHARMIN HERR Admission Status: ER Accout number: [id number] Admission Date: 06-25-2019 : 1935 Admission Diagnosis:WEAKNESS Attending: TRISTON CASTELLANO Current LOS: 4 Anticipated DC Date: Planned Disposition: Primary Insurance: MEDICARE A & B Discharge Planning Comments: I spoke to the patients daughter Judy at [phone]. They would like him to have [facility]. Prescreen is in and OT assessed patient yesterday. CM to follow and assist as needed. Computer Forensic Specialist: Yoana Abdullahi DCP- Discharge Planning Updated by [email or web address]: Yoana Abdullahi on 06/27/19 1:[address] Patient Name: SHARMIN HERR Admission Status: ER Accout number: [id number] Admission Date: 06-25-2019 : 1935 Admission Diagnosis: Attending: TRISTON CASTELLANO Current LOS: 2 Anticipated DC Date: Planned Disposition: Primary Insurance: MEDICARE A & B Discharge Planning Comments: CM met with patient at bedside after explaining CM role and obtaining verbal consent. CM discussed availability / needs of home health, REHAB and medical equipment. HAS EQUIPMENT AT HOME. LIVES ALONE AND [facility] COMES TO HIS HOME. WANTS ME TO COME BACK AND SEE HIM AFTER DR. CASTELLANO VISITS WITH HIM. INPATIENT REHAB PRESCREEN WAS ORDERED. CM TO FOLLOW AND ASSIST. Computer Forensic Specialist: Yoana Abdullahi DCPIA - Discharge Planning Initial Assessment Updated by [email or web address]: Yoana Abdullahi on 06/27/19 2:37 pm * Is the patient Alert and Oriented? Yes * PCP GRAY * Preadmission Environment Home Alone * ADLs Independent * Other Equipment WALKER * Please name any agencies selected above. AIR ANALYSIS TECHNICIAN [facility] * Has this patient been hospitalized within the prior 30 days at any hospital? No Last DP export: 06/27/19 1:42 p Patient Name: SHARMIN HERR Page [id number] at 0929 All edits/amendments must be made on the electronic document DICTATION DATE: 06/29/19928 SPRING ENCASER: DANNIELLE 06/29/19928 RPT#: [id number] DC DATE: STATUS: ADM IN [facility] [address] [place] [address] END OF REPORT
--- NOTE | 2019-06-29 10:19 | MORECARE ---
CASE MANAGEMENT DISCHARGE SUMMARY PATIENT: SHARMIN HERR UNIT: [id number] ADM DATE: 06/25/19 AGE: 84 : 34 SEX: M ROOM/BED: D.2234 AUTHOR: GIORGI PRICE PHYSICIAN: REFERRING PHYSICIAN: TRISTNO CASTELLANO MD DATE OF SERVICE: 06/29/19 Discharge Plan Patient Name: SHARMIN HERR Facility: [facility]:[place] : 1935 Planned Disposition: Anticipated Discharge Date: Discharge Date: Expected LOS: Initial Reviewer: [email or web address] Initial Review Date: 06/27/2019 Generated: 06/29/19 11:18 am Comments DCP- Discharge Planning Updated by [email or web address]: Yoana Abdullahi on 06/29/19 9:[address] Patient Name: SHARMIN HERR Admission Status: ER Accout number: [id number] Admission Date: 06-25-2019 : 1935 Admission Diagnosis:WEAKNESS Attending: TRSITON CASTELLANO Current LOS: 4 Anticipated DC Date: Planned Disposition: Primary Insurance: MEDICARE A & B Discharge Planning Comments: I spoke with patient's daughter Judy at [phone] today. She states Hospice may be a better option. States would like In patient hospice at [facility] if he qualifies or possible Home hospice. The patient's POA is Gage Proctorberg at [phone], Judy said he gets off work at 2pm today, I will call him at 3pm today to discuss hospice. Cm to follow and assist as needed. Skirt Panel Assembler: Yoana Abdullahi DCP- Discharge Planning Updated by [email or web address]: Yoana Abdullahi on 06/29/19 8:[address] Patient Name: SHARMIN HERR Admission Status: ER Accout number: [id number] Admission Date: 06-25-2019 : 1935 Admission Diagnosis:WEAKNESS Attending: TRISTON CASTELLANO Current LOS: 4 Anticipated DC Date: Planned Disposition: Primary Insurance: MEDICARE A & B Discharge Planning Comments: I spoke to the patients daughter Judy at [phone]. They would like him to have [facility]. Prescreen is in and OT assessed patient yesterday. CM to follow and assist as needed. Skirt Panel Assembler: Yoana Abdullahi DCP- Discharge Planning Updated by [email or web address]: Yoana Abdullahi on 06/27/19 1:[address] Patient Name: SHARMIN HERR Admission Status: ER Accout number: [id number] Admission Date: 06-25-2019 : 1935 Admission Diagnosis: Attending: TRISTON CASTELLANO Current LOS: 2 Anticipated DC Date: Planned Disposition: Primary Insurance: MEDICARE A & B Discharge Planning Comments: CM met with patient at bedside after explaining CM role and obtaining verbal consent. CM discussed availability / needs of home health, REHAB and medical equipment. STATES HAS EQUIPMENT AT HOME. LIVES ALONE AND [facility] COMES TO HIS HOME. WANTS ME TO COME BACK AND SEE HIM AFTER DR. CASTELLANO VISITS WITH HIM. INPATIENT REHAB PRESCREEN WAS ORDERED. CM TO FOLLOW AND ASSIST. Skirt Panel Assembler: Yoanasatinder Abdullahi DCPIA - Discharge Planning Initial Assessment Updated by [email or web address]: Yoana Abdullahi on 06/27/19 2:37 pm * Is the patient Alert and Oriented? Yes * PCP GRAY * Preadmission Environment Home Alone * ADLs Independent * Other Equipment WALKER * Please name any agencies selected above. ELECTRICAL TESTER BATTERY [facility] * Has this patient been hospitalized within the prior 30 days at any hospital? No Last DP export: 06/29/19 8:29 a Patient Name: SHARMIN HERR Page [phone] at 1019 All edits/amendments must be made on the electronic document DICTATION DATE: 06/29/19 1018 SYSTEM SUPPORT DEVELOPER: DANNIELLE 06/29/19 1018 RPT#: [id number] DC DATE: STATUS: ADM IN [facility] [address] [place] [address] END OF REPORT
--- NOTE | 2019-06-29 10:31 | MORECARE ---
CASE MANAGEMENT DISCHARGE SUMMARY PATIENT: SHARMIN HERR UNIT: [id number] ADM DATE: 06/25/19 AGE: 84 : 34 SEX: M ROOM/BED: D.2234 AUTHOR: GIORGI PRICE PHYSICIAN: REFERRING PHYSICIAN: TRISTON CASTELLANO MD DATE OF SERVICE: 06/29/19 Discharge Plan Patient Name: SHARMIN HERR Facility: [facility]:[place] : 1935 Planned Disposition: Anticipated Discharge Date: Discharge Date: Expected LOS: Initial Reviewer: [id number] Initial Review Date: 06/27/2019 Generated: 06/29/19 11:30 am Comments DCP- Discharge Planning Updated by [email or web address]: Yoana Abdullahi on 06/29/19 9:[address] Patient Name: SHARMIN HERR Admission Status: ER Accout number: [id number] Admission Date: 06-25-2019 : 1935 Admission Diagnosis:WEAKNESS Attending: TRISTON CASTELLANO Current LOS: 4 Anticipated DC Date: Planned Disposition: Primary Insurance: MEDICARE A & B Discharge Planning Comments: I spoke with patient's daughter Judy at [phone] today. She states Hospice may be a better option. States would like In patient hospice at [facility] if he qualifies or possible Home hospice. The patient's POA is Gage Proctorberg at [phone], Judy said he gets off work at 2pm today, I will call him at 3pm today to discuss hospice. Cm to follow and assist as needed. Bindery Chief: Yoana Abdullahi DCP- Discharge Planning Updated by [id number]: Yoana Abdullahi on 06/29/19 8:[address] Patient Name: SHARMIN HERR Admission Status: ER Accout number: [id number] Admission Date: 06-25-2019 : 1935 Admission Diagnosis:WEAKNESS Attending: TRISTON CASTELLANO Current LOS: 4 Anticipated DC Date: Planned Disposition: Primary Insurance: MEDICARE A & B Discharge Planning Comments: I spoke to the patients daughter Judy at [phone]. They would like him to have [facility]. Prescreen is in and OT assessed patient yesterday. CM to follow and assist as needed. Bindery Chief: Yoana Abdullahi DCP- Discharge Planning Updated by [id number]: Yoana Abdullahi on 06/27/19 1:[address] Patient Name: SHARMIN HERR Admission Status: ER Accout number: [id number] Admission Date: 06-25-2019 : 1935 Admission Diagnosis: Attending: TRISTON CASTELLANO Current LOS: 2 Anticipated DC Date: Planned Disposition: Primary Insurance: MEDICARE A & B Discharge Planning Comments: CM met with patient at bedside after explaining CM role and obtaining verbal consent. CM discussed availability / needs of home health, REHAB and medical equipment. STATES HAS EQUIPMENT AT HOME. LIVES ALONE AND [facility] COMES TO HIS HOME. WANTS ME TO COME BACK AND SEE HIM AFTER DR. CASTELLANO VISITS WITH HIM. INPATIENT REHAB PRESCREEN WAS ORDERED. CM TO FOLLOW AND ASSIST. Bindery Chief: Yoanasatinder Abdullahi DCPIA - Discharge Planning Initial Assessment Updated by [email or web address]: Yoana Abdullahi on 06/27/19 2:37 pm * Is the patient Alert and Oriented? Yes * PCP GRAY * Preadmission Environment Home Alone * ADLs Independent * Other Equipment WALKER * Please name any agencies selected above. [employer] [facility] * Has this patient been hospitalized within the prior 30 days at any hospital? No Last DP export: 06/29/19 9:18 a Patient Name: SHARMIN HERR Page 45741 at 1031 All edits/amendments must be made on the electronic document DICTATION DATE: 06/29/19 1030 DEVULCANIZER OPERATOR: DANNIELLE 06/29/19 1030 RPT#: [id number] DC DATE: STATUS: ADM IN [facility] [address] [place] [address] END OF REPORT
[2019-06-29 12:00] VITALS: BP 101/53
--- NOTE | 2019-06-29 15:10 | NUR ---
I have reviewed this patient and I concur with the Shift Assessment completed by the Licensed Practical Nurse today this shift.
[2019-06-29 16:00] VITALS: BP 141/77
--- NOTE | 2019-06-29 16:52 | MORECARE ---
CASE MANAGEMENT DISCHARGE SUMMARY PATIENT: SHARMIN COOLEY UNIT: [id number] ADM DATE: 06/25/19 AGE: 84 : 34 SEX: M ROOM/BED: D.2234 AUTHOR: GIORGI PRICE PHYSICIAN: REFERRING PHYSICIAN: TRISTON CASTELLANO MD DATE OF SERVICE: 06/29/19 Discharge Plan Patient Name: SHARMIN COOLEY Facility: [facility]:[place] : 1935 Planned Disposition: Anticipated Discharge Date: Discharge Date: Expected LOS: Initial Reviewer: [id number] Initial Review Date: 06/27/2019 Generated: 06/29/19 5:52 pm Comments DCP- Discharge Planning Updated by [id number]: Yoana Abdullahi on 06/29/19 3:[address] Patient Name: SHARMIN COOLEY Admission Status: ER Accout number: [id number] Admission Date: 06-25-2019 : 1935 Admission Diagnosis:WEAKNESS Attending: TRISTON CASTELLANO Current LOS: 4 Anticipated DC Date: Planned Disposition: Primary Insurance: MEDICARE A & B Discharge Planning Comments: I spoke with patient's daughter Judy at [phone] today. She states Hospice may be a better option. States would like In patient hospice at [facility] if he qualifies or possible Home hospice. The patient's POA is Gage Cooley at [phone], Judy said he gets off work at 2pm today, I will call him at 3pm today to discuss hospice. Cm to follow and assist as needed. Siphoner: Yoana Abdullahi Appended by Yoana Abdullahi on 06/29/2019 16:49 CDT: I TRIED CALLING PATIENT'S SON/POA, I GOT VOICEMAIL SO I LEFT A MSG TO CALL ME BACK. IF I DO NOT HERE FROM HIM TODAY I WILL TRY TO CALL TOMORROW. DCP- Discharge Planning Updated by [email or web address]: Yoana Abdullahi on 06/29/19 8:[address] Patient Name: SHARMIN COOLEY Admission Status: ER Accout number: [id number] Admission Date: 06-25-2019 : 1935 Admission Diagnosis:WEAKNESS Attending: TRISTON CASTELLANO Current LOS: 4 Anticipated DC Date: Planned Disposition: Primary Insurance: MEDICARE A & B Discharge Planning Comments: I spoke to the patients daughter Judy at [phone]. They would like him to have [facility]. Prescreen is in and OT assessed patient yesterday. CM to follow and assist as needed. Siphoner: Yoana Abdullahi DCP- Discharge Planning Updated by [email or web address]: Yoana Kaylen on 06/27/19 1:[address] Patient Name: SHARMIN COOLEY Admission Status: ER Accout number: [id number] Admission Date: 06-25-2019 : 1935 Admission Diagnosis: Attending: TRISTON CASTELLANO Current LOS: 2 Anticipated DC Date: Planned Disposition: Primary Insurance: MEDICARE A & B Discharge Planning Comments: CM met with patient at bedside after explaining CM role and obtaining verbal consent. CM discussed availability / needs of home health, REHAB and medical equipment. STATES HAS EQUIPMENT AT HOME. LIVES ALONE AND [facility] COMES TO HIS HOME. WANTS ME TO COME BACK AND SEE HIM AFTER DR. CASTELLANO VISITS WITH HIM. INPATIENT REHAB PRESCREEN WAS ORDERED. CM TO FOLLOW AND ASSIST. Siphoner: Yoana Abdullahi DCPIA - Discharge Planning Initial Assessment Updated by [email or web address]: Yoana Kaylen on 06/27/19 2:37 pm * Is the patient Alert and Oriented? Yes * PCP GRAY * Preadmission Environment Home Alone * ADLs Independent * Other Equipment WALKER * Please name any agencies selected above. [employer] [facility] * Has this patient been hospitalized within the prior 30 days at any hospital? No Last DP export: 06/29/19 9:31 a Patient Name: SHARMIN COOLEY Page 42087 at 1652 All edits/amendments must be made on the electronic document DICTATION DATE: 06/29/191651 AERIAL PLANTING AND CULTIVATION MANAGER: DANNIELLE 06/29/191651 RPT#: [id number] DC DATE: STATUS: ADM IN [facility] [address] [place] [address] END OF REPORT
--- NOTE | 2019-06-29 18:20 | NUR ---
ALERT, RESTING IN BED WATCHING TV. NO C/O PAIN. NO S/S OF ACUTE DISTRESS NOTED. DENIES ANY NEEDS AT THIS TIME. GETACHEW ALARM ON. CALL LIGHT IN REACH. WILL CONTINUE TO MONITOR.
--- NOTE | 2019-06-29 18:23 | NUR ---
OT NOTE: (AM) PT COMPLETED BED MOB TASKS TO INCLUDE SIDE ROLLING AND SUPINE TO SIT WITH SBA. (PM) PT COMPLETED SUPINE TO SIT WITH SBA. PT COMPLETED ADL MOB WITH CGA. PT COMPLETED TOILETING TASKS WITH SBA. PT COMPLETED BUE AROM EXS AT EOB WITH SBA. PT EXHIBITED INCREASED FUNCTION AND AX TOLERANCE. [phone] THANK YOU, OLAMIDE LI
--- NOTE | 2019-06-29 19:30 | NUR ---
PT SITTING UP IN BED WITHOUT DISTRESS, ORIENTED TO SELF AND PLACE. SBA TO BATHROOM AND BACK. DENIES NEEDS AT THIS TIME. CL IN REACH, WILL CTM
[2019-06-29 21:43] VITALS: BP 146/71
[2019-06-30] VITALS (7 sets, daily range): BP systolic 109–141; BP diastolic 52–84
--- NOTE | 2019-06-30 06:45 | NUR ---
RESTING IN BED WITH EYES OPEN. NO C/O PAIN. NO S/S OF ACUTE DISTRESS NOTED. GETACHEW ALARM ON. ELIM IRA. UP WITH STANDBY. IV TO RIGHT FOREARM, SL. SITE PATENT WITHOUT REDNESS OR SWELLING. DENIES ANY NEEDS AT THIS TIME. CALL LIGHT IN REACH. WILL CONTINUE TO MONITOR.
--- NOTE | 2019-06-30 10:08 | MORECARE ---
CASE MANAGEMENT DISCHARGE SUMMARY PATIENT: SHARMIN COOLEY UNIT: [id number] ADM DATE: 06/25/19 AGE: 84 : 34 SEX: M ROOM/BED: D.2234 AUTHOR: GIORGI PRICE PHYSICIAN: REFERRING PHYSICIAN: TRISTON CASTELLANO MD DATE OF SERVICE: 06/30/19 Discharge Plan Patient Name: SHARMIN COOLEY Facility: [facility]:[place] : 1935 Planned Disposition: Anticipated Discharge Date: Discharge Date: Expected LOS: Initial Reviewer: [email or web address] Initial Review Date: 06/27/2019 Generated: 06/30/19 11:08 am Comments DCP- Discharge Planning Updated by [id number]: Yoana Abdullahi on 06/30/19 9:[address] Patient Name: SHARMIN COOLEY Admission Status: ER Accout number: [id number] Admission Date: 06-25-2019 : 1935 Admission Diagnosis:WEAKNESS Attending: TRISTON CASTELLANO Current LOS: 5 Anticipated DC Date: Planned Disposition: Primary Insurance: MEDICARE A & B Discharge Planning Comments: CM SPOKE WITH ANGELA PICKARD/SON TODAY. WOULD LIKE FATHER TO GO TO [facility]. [facility]. I FAXED REFERRAL AND NOTIFIED DONA. XAVIER TO FOLLOW. Auto Service Instructor: Yoana Abdullahi DCP- Discharge Planning Updated by [email or web address]: Yoana Abdullahi on 06/29/19 3:[address] Patient Name: SHARMIN COOLEY Admission Status: ER Accout number: [id number] Admission Date: 06-25-2019 : 1935 Admission Diagnosis:WEAKNESS Attending: TRISTON CASTELLANO Current LOS: 4 Anticipated DC Date: Planned Disposition: Primary Insurance: MEDICARE A & B Discharge Planning Comments: I spoke with patient's daughter Judy at [phone] today. She states Hospice may be a better option. States would like In patient hospice at [facility] if he qualifies or possible Home hospice. The patient's POA is Angela Cooley at [phone], Judy said he gets off work at 2pm today, I will call him at 3pm today to discuss hospice. Cm to follow and assist as needed. Auto Service Instructor: Yoana Abdullahi Appended by Yoana Abdullahi on 06/29/2019 16:49 CDT: I TRIED CALLING PATIENT'S SON/POA, I GOT VOICEMAIL SO I LEFT A MSG TO CALL ME BACK. IF I DO NOT HERE FROM HIM TODAY I WILL TRY TO CALL TOMORROW. DCP- Discharge Planning Updated by [id number]: Yoana Abdullahi on 06/29/19 8:[address] Patient Name: SHARMIN COOLEY Admission Status: ER Accout number: [id number] Admission Date: 06-25-2019 : 1935 Admission Diagnosis:WEAKNESS Attending: TRISTON CASTELLANO Current LOS: 4 Anticipated DC Date: Planned Disposition: Primary Insurance: MEDICARE A & B Discharge Planning Comments: I spoke to the patients daughter Judy at [phone]. They would like him to have [facility]. Prescreen is in and OT assessed patient yesterday. CM to follow and assist as needed. Auto Service Instructor: Yoana Abdullahi DCP- Discharge Planning Updated by [email or web address]: Yoana Abdullahi on 06/27/19 1:[address] Patient Name: SHARMIN COOLEY Admission Status: ER Accout number: [id number] Admission Date: 06-25-2019 : 1935 Admission Diagnosis: Attending: TRISTON CASTELLANO Current LOS: 2 Anticipated DC Date: Planned Disposition: Primary Insurance: MEDICARE A & B Discharge Planning Comments: CM met with patient at bedside after explaining CM role and obtaining verbal consent. CM discussed availability / needs of home health, REHAB and medical equipment. STATES HAS EQUIPMENT AT HOME. LIVES ALONE AND [facility] COMES TO HIS HOME. WANTS ME TO COME BACK AND SEE HIM AFTER DR. CASTELLANO VISITS WITH HIM. INPATIENT REHAB PRESCREEN WAS ORDERED. CM TO FOLLOW AND ASSIST. Auto Service Instructor: Yoana Abdullahi DCPIA - Discharge Planning Initial Assessment Updated by [email or web address]: Yoana Abdullahi on 06/27/19 2:37 pm * Is the patient Alert and Oriented? Yes * PCP GRAY * Preadmission Environment Home Alone * ADLs Independent * Other Equipment WALKER * Please name any agencies selected above. [employer] [facility] * Has this patient been hospitalized within the prior 30 days at any hospital? No External Providers External Provider: [facility] Next Contact Date: Service Request Date: Service Type: Resolution: Reviewer: Comments: Coverage Notice Reviewer: [id number] - Yoana Abdullahi Notice Issued Date-Time: 06/30/2019 9:59 Notice Type: Patient Choice Letter Notice Delivered To: Other Relationship to Patient: Power of Cloth Baler Public Health Registrar Name: ANGELA COOLEY Delivery Method: PHONE - Phone Tiara Days: Prior Verbal Notification: Recipient Understood Notice: Yes Recipient Signature: Med Rec Note Co-signed by Attending: Coverage Notice Comment: [facility] Last DP export: 06/29/19 3:52 p Patient Name: SHARMIN COOLEY Page [phone] at 1008 All edits/amendments must be made on the electronic document DICTATION DATE: 06/30/19 100 CONSUMER STUDIES PROFESSOR: DANNIELLE 06/30/19 1008 RPT#: [id number] DC DATE: STATUS: ADM IN [facility] [address] [place] [address] END OF REPORT
--- NOTE | 2019-06-30 10:15 | MORECARE ---
CASE MANAGEMENT DISCHARGE SUMMARY PATIENT: SHARMIN COOLEY UNIT: [id number] ADM DATE: 06/25/19 AGE: 84 : 34 SEX: M ROOM/BED: D.2234 AUTHOR: GIORGI PRICE PHYSICIAN: REFERRING PHYSICIAN: TRISTON CASTELLANO MD DATE OF SERVICE: 06/30/19 Discharge Plan Patient Name: SHARMIN COOLEY Facility: [facility]:[place] : 1935 Planned Disposition: Anticipated Discharge Date: Discharge Date: Expected LOS: Initial Reviewer: [id number] Initial Review Date: 06/27/2019 Generated: 06/30/19 11:14 am Comments DCP- Discharge Planning Updated by [id number]: Yoana Abdullahi on 06/30/19 9:[address] Patient Name: SHARMIN COOLEY Admission Status: ER Accout number: [id number] Admission Date: 06-25-2019 : 1935 Admission Diagnosis:WEAKNESS Attending: TRISTON CASTELLANO Current LOS: 5 Anticipated DC Date: Planned Disposition: Primary Insurance: MEDICARE A & B Discharge Planning Comments: CM SPOKE WITH ANGELA PICKARD/SON TODAY. WOULD LIKE FATHER TO GO TO [facility]. [facility]. I FAXED REFERRAL AND NOTIFIED DONA. XAVIER TO FOLLOW. Studio Hand: Yoana Abdullahi DCP- Discharge Planning Updated by [id number]: Yoana Abdullahi on 06/29/19 3:[address] Patient Name: SHARMIN COOLEY Admission Status: ER Accout number: [id number] Admission Date: 06-25-2019 : 1935 Admission Diagnosis:WEAKNESS Attending: TRISTON CASTELLANO Current LOS: 4 Anticipated DC Date: Planned Disposition: Primary Insurance: MEDICARE A & B Discharge Planning Comments: I spoke with patient's daughter Judy at [phone] today. She states Hospice may be a better option. States would like In patient hospice at [facility] if he qualifies or possible Home hospice. The patient's POA is Angela Cooley at [phone], Judy said he gets off work at 2pm today, I will call him at 3pm today to discuss hospice. Cm to follow and assist as needed. Studio Hand: Yoana Abdullahi Appended by Yoana Abdullahi on 06/29/2019 16:49 CDT: I TRIED CALLING PATIENT'S SON/POA, I GOT VOICEMAIL SO I LEFT A MSG TO CALL ME BACK. IF I DO NOT HERE FROM HIM TODAY I WILL TRY TO CALL TOMORROW. DCP- Discharge Planning Updated by [email or web address]: Yoana Abdullahi on 06/29/19 8:[address] Patient Name: SHARMIN COOLEY Admission Status: ER Accout number: [id number] Admission Date: 06-25-2019 : 1935 Admission Diagnosis:WEAKNESS Attending: TRISTON CASTELLANO Current LOS: 4 Anticipated DC Date: Planned Disposition: Primary Insurance: MEDICARE A & B Discharge Planning Comments: I spoke to the patients daughter Judy at [phone]. They would like him to have [facility]. Prescreen is in and OT assessed patient yesterday. CM to follow and assist as needed. Studio Hand: Yoana Abdullahi DCP- Discharge Planning Updated by [id number]: Yoana Abdullahi on 06/27/19 1:[address] Patient Name: SHARMIN COOLEY Admission Status: ER Accout number: [id number] Admission Date: 06-25-2019 : 1935 Admission Diagnosis: Attending: TRISTON CASTELLANO Current LOS: 2 Anticipated DC Date: Planned Disposition: Primary Insurance: MEDICARE A & B Discharge Planning Comments: CM met with patient at bedside after explaining CM role and obtaining verbal consent. CM discussed availability / needs of home health, REHAB and medical equipment. STATES HAS EQUIPMENT AT HOME. LIVES ALONE AND [facility]STE[facility] COMES TO HIS HOME. WANTS ME TO COME BACK AND SEE HIM AFTER DR. CASTELLANO VISITS WITH HIM. INPATIENT REHAB PRESCREEN WAS ORDERED. CM TO FOLLOW AND ASSIST. Studio Hand: Yoana Abdullahi DCPIA - Discharge Planning Initial Assessment Updated by [email or web address]: Yoana Abdullahi on 06/27/19 2:37 pm * Is the patient Alert and Oriented? Yes * PCP GRAY * Preadmission Environment Home Alone * ADLs Independent * Other Equipment WALKER * Please name any agencies selected above. [employer] [facility] * Has this patient been hospitalized within the prior 30 days at any hospital? No External Providers External Provider: [facility] Next Contact Date: Service Request Date: Service Type: Resolution: Reviewer: Comments: Coverage Notice Reviewer: [id number] - Yoana Abdullahi Notice Issued Date-Time: 06/30/2019 9:59 Notice Type: Patient Choice Letter Notice Delivered To: Other Relationship to Patient: Power of Hammerer Tab Divisional Human Resources Director Name: ANGELA COOLEY Delivery Method: PHONE - Phone Tiara Days: Prior Verbal Notification: Recipient Understood Notice: Yes Recipient Signature: Med Rec Note Co-signed by Attending: Coverage Notice Comment: [facility] Last DP export: 06/29/19 3:52 p Patient Name: SHARMIN COOLEY Page 56778 at 1015 All edits/amendments must be made on the electronic document DICTATION DATE: 06/30/19 1014 CAN HANDLER: DANNIELLE 06/30/19 1014 RPT#: [id number] DC DATE: STATUS: ADM IN [facility] [address] [place] [address] END OF REPORT
--- NOTE | 2019-06-30 13:51 | NUR ---
LOOKED AT PATIENT'S SKIN WITH TAY ELMORE. STAGE ONE PRESSURE ULCER, BLANCHABLE. APPLIED SKIN PROTECTANT TO AREA. COCCYX AND BUTTOCKS AFFECTED.
--- NOTE | 2019-06-30 14:19 | NUR ---
PT C/O HIS BOTTOM HURTING "IN THE CRACK". NONBLANCHABLE REDNESS IS NOTED. ZINC OXIDE PASTE APPLIED. PT VOICED RELIEF. DRY SCABS AND SCARS NOTED ON HIS BACK, MOSTLY AT SHOULDERS AND NECK AREA. APPEAR TO BE FROM SCRATCHING. WOUND CARE WILL CONTINUE MONITORING.
--- NOTE | 2019-06-30 16:39 | MORECARE ---
CASE MANAGEMENT DISCHARGE SUMMARY PATIENT: SHARMIN COOLEY UNIT: [id number] ADM DATE: 06/25/19 AGE: 84 : 34 SEX: M ROOM/BED: D.2234 AUTHOR: GIORGI PRICE PHYSICIAN: REFERRING PHYSICIAN: TRISTON CASTELLANO MD DATE OF SERVICE: 06/30/19 Discharge Plan Patient Name: SHARMIN COOLEY Facility: [facility]:[place] : 1935 Planned Disposition: Anticipated Discharge Date: Discharge Date: Expected LOS: Initial Reviewer: [id number] Initial Review Date: 06/27/2019 Generated: 06/30/19 5:38 pm DCP- Discharge Planning Updated by [email or web address]: Yoana Abdullahi on 06/30/19 9:[address] Patient Name: SHARMIN COOLEY Admission Status: ER Accout number: [id number] Admission Date: 06-25-2019 : 1935 Admission Diagnosis:WEAKNESS Attending: TRISTON CASTELLANO Current LOS: 5 Anticipated DC Date: Planned Disposition: Primary Insurance: MEDICARE A & B Discharge Planning Comments: CM SPOKE WITH ANGELA PICKARD/SON TODAY. WOULD LIKE FATHER TO GO TO [facility]. [facility] FOR [facility]. I FAXED REFERRAL AND NOTIFIED CM TO FOLLOW. Rubber Mixer: Yoana Abdullahi DCP- Discharge Planning Updated by [email or web address]: Yoana Abdullahi on 06/29/19 3:[address] Patient Name: SHARMIN COOLEY Admission Status: ER Accout number: [id number] Admission Date: 06-25-2019 : 1935 Admission Diagnosis:WEAKNESS Attending: TRISTON CASTELLANO Current LOS: 4 Anticipated DC Date: Planned Disposition: Primary Insurance: MEDICARE A & B Discharge Planning Comments: I spoke with patient's daughter Judy at [phone] today. She states Hospice may be a better option. States would like In patient hospice at [facility] if he qualifies or possible Home hospice. The patient's POA is Angela Cooley at [phone], Judy said he gets off work at 2pm today, I will call him at 3pm today to discuss hospice. Cm to follow and assist as needed. Rubber Mixer: Yoana Abdullahi Appended by Yoana Abdullahi on 06/29/2019 16:49 CDT: I TRIED CALLING PATIENT'S SON/POA, I GOT VOICEMAIL SO I LEFT A MSG TO CALL ME BACK. IF I DO NOT HERE FROM HIM TODAY I WILL TRY TO CALL TOMORROW. DCP- Discharge Planning Updated by [email or web address]: Yoana Abdullahi on 06/29/19 8:[address] Patient Name: SHARMIN COOLEY Admission Status: ER Accout number: [id number] Admission Date: 06-25-2019 : 1935 Admission Diagnosis:WEAKNESS Attending: TRISTON CASTELLANO Current LOS: 4 Anticipated DC Date: Planned Disposition: Primary Insurance: MEDICARE A & B Discharge Planning Comments: I spoke to the patients daughter Judy at [phone]. They would like him to have [facility]. Prescreen is in and OT assessed patient yesterday. CM to follow and assist as needed. Rubber Mixer: Yoana Abdullahi DCP- Discharge Planning Updated by [email or web address]: Yoana Abdullahi on 06/27/19 1:[address] Patient Name: SHARMIN COOLEY Admission Status: ER Accout number: [id number] Admission Date: 06-25-2019 : 1935 Admission Diagnosis: Attending: TRISTON CASTELLANO Current LOS: 2 Anticipated DC Date: Planned Disposition: Primary Insurance: MEDICARE A & B Discharge Planning Comments: CM met with patient at bedside after explaining CM role and obtaining verbal consent. CM discussed availability / needs of home health, REHAB and medical equipment. STATES HAS EQUIPMENT AT HOME. LIVES ALONE AND HOME INSTEAD COMES TO HIS HOME. WANTS ME TO COME BACK AND SEE HIM AFTER DR. CASTELLANO VISITS WITH HIM. INPATIENT REHAB PRESCREEN WAS ORDERED. CM TO FOLLOW AND ASSIST. Rubber Mixer: Yoana Abdullahi DCPIA - Discharge Planning Initial Assessment Updated by [id number]: Yoana Abdullahi on 06/27/19 2:37 pm * Is the patient Alert and Oriented? Yes * PCP GRAY * Preadmission Environment Home Alone * ADLs Independent * Other Equipment WALKER * Please name any agencies selected above. [employer] [facility] * Has this patient been hospitalized within the prior 30 days at any hospital? No Coverage Notice Reviewer: [id number] - Yoana Abdullahi Notice Issued Date-Time: 06/30/2019 9:59 Notice Type: Patient Choice Letter Notice Delivered To: Other Relationship to Patient: Power of Textile Pin Worker Microfilm Technician Name: ANGELA COOLEY Delivery Method: PHONE - Phone Tiara Days: Prior Verbal Notification: Recipient Understood Notice: Yes Recipient Signature: Med Rec Note Co-signed by Attending: Coverage Notice Comment: [facility] Last DP export: 06/30/19 9:15 a Patient Name: SHARMIN COOLEY Page 66795 at 1639 All edits/amendments must be made on the electronic document DICTATION DATE: 06/30/191637 GRANTS ANALYST: DANNIELLE 06/30/191637 RPT#: [id number] DC DATE: STATUS: ADM IN [facility] [address] [place] [address] END OF REPORT
--- NOTE | 2019-06-30 17:53 | NUR ---
ALERT AND ORIENTED. RESTING IN BED WITH EYES OPEN. NO C/O PAIN. NO S/S OF ACUTE DISTRESS NOTED. GETACHEW ALARM ON. DENIES ANY NEEDS AT THIS TIME. CALL LIGHT IN REACH. WILL CONTINUE TO MONITOR.
--- NOTE | 2019-06-30 18:45 | NUR ---
I have reviewed this patient and I concur with the Shift Assessment completed by the Licensed Practical Nurse today this shift.
--- NOTE | 2019-06-30 20:00 | NUR ---
PT SITTING UP IN BED WITHOUT DISTRESS, ORIENTED TO SELF. PT REQUESTING BATH, NURSES AID AT BEDSIDE TO GIVE BATH. DENIES OTHER NEEDS. CL IN REACH, WILL CTM
[2019-07-01] VITALS: BP 128/71
[2019-07-01 04:00] VITALS: BP 138/79
[2019-07-01 08:00] VITALS: BP 121/74
--- NOTE | 2019-07-01 08:00 | NUR ---
ALERT AND ORIENTED TO SELF AND SURROUNDINGS. IV TO RIGHT F/A S/L WITH NO S/S OF INFECTION/INFILTRATION. DENIES ANY PAIN OR DISCOMFORT AT THIS TIME. FALL PRECAUTIONS IN PLACE AND ENCOURAGED TO USE CALL LIGHT FOR ASSSIT. HRRR AND LUNGS CTA. PATIENT REFUSES SCD'S.
[2019-07-01] MEDS ORDERED: IBUPROFEN400 MG PO (08:03)
[2019-07-01] MEDS ORDERED: HYDROCODON-ACE1 EA10 PO (08:03)
--- NOTE | 2019-07-01 09:26 | MORECARE ---
CASE MANAGEMENT DISCHARGE SUMMARY PATIENT: SHARMIN COOLEY UNIT: [id number] ADM DATE: 06/25/19 AGE: 84 : 34 SEX: M ROOM/BED: D.2234 AUTHOR: GIORGI PRICE PHYSICIAN: REFERRING PHYSICIAN: TRISTON CASTELLANO MD DATE OF SERVICE: 07/01/19 Discharge Plan Patient Name: SHARMIN COOLEY Facility: [facility]:[place] : 1935 Planned Disposition: Anticipated Discharge Date: Discharge Date: Expected LOS: Initial Reviewer: [id number] Initial Review Date: 06/27/2019 Generated: 07/01/19 10:26 am Comments DCP- Discharge Planning Updated by [email or web address]: Yoana Abdullahi on 07/01/19 8:[address] Patient Name: SHARMIN COOLEY Encounter No: [id number] : 1935 Primary Insurance: MEDICARE A & B Anticipated DC Date: Planned Disposition: External Planned Provider: : DCP follow-up note: Patient and family in agreement with discharge plan. No changes to plan. Case management will follow and assist as needed. IMM signed. Yoana Abdullahi DCP- Discharge Planning Updated by [id number]: Yoana Abdullahi on 06/30/19 9:[address] Patient Name: SHARMIN COOLEY Admission Status: ER Accout number: [id number] Admission Date: 06-25-2019 : 1935 Admission Diagnosis:WEAKNESS Attending: TRISTON CASTELLANO Current LOS: 5 Anticipated DC Date: Planned Disposition: Primary Insurance: MEDICARE A & B Discharge Planning Comments: CM SPOKE WITH ANGELA PICKARD/SON TODAY. WOULD LIKE FATHER TO GO TO [facility]. [facility]. I FAXED REFERRAL AND NOTIFIED DONA. XAVIER TO FOLLOW. Fish Cake Maker: Yoana Abdullahi DCP- Discharge Planning Updated by [id number]: Yoana Abdullahi on 06/29/19 3:[address] Patient Name: SHARMIN COOLEY Admission Status: ER Accout number: [id number] Admission Date: 06-25-2019 : 1935 Admission Diagnosis:WEAKNESS Attending: TRISTON CASTELLANO Current LOS: 4 Anticipated DC Date: Planned Disposition: Primary Insurance: MEDICARE A & B Discharge Planning Comments: I spoke with patient's daughter Judy at [phone] today. She states Hospice may be a better option. States would like In patient hospice at [facility] if he qualifies or possible Home hospice. The patient's POA is Angela Cooley at [phone], Judy said he gets off work at 2pm today, I will call him at 3pm today to discuss hospice. Cm to follow and assist as needed. Fish Cake Maker: Yoana Abdullahi Appended by Yoana Abdullahi on 06/29/2019 16:49 CDT: I TRIED CALLING PATIENT'S SON/POA, I GOT VOICEMAIL SO I LEFT A MSG TO CALL ME BACK. IF I DO NOT HERE FROM HIM TODAY I WILL TRY TO CALL TOMORROW. DCP- Discharge Planning Updated by [id number]: Yoana Abdullahi on 06/29/19 8:[address] Patient Name: SHARMIN COOLEY Admission Status: ER Accout number: [id number] Admission Date: 06-25-2019 : 1935 Admission Diagnosis:WEAKNESS Attending: TRISTON CASTELLANO Current LOS: 4 Anticipated DC Date: Planned Disposition: Primary Insurance: MEDICARE A & B Discharge Planning Comments: I spoke to the patients daughter Judy at [phone]. They would like him to have [facility]. Prescreen is in and OT assessed patient yesterday. CM to follow and assist as needed. Fish Cake Maker: Yoana Abdullahi DCP- Discharge Planning Updated by [id number]: Yoana Abdullahi on 06/27/19 1:[address] Patient Name: SHARMIN COOLEY Admission Status: ER Accout number: [id number] Admission Date: 06-25-2019 : 1935 Admission Diagnosis: Attending: TRISTON CASTELLANO Current LOS: 2 Anticipated DC Date: Planned Disposition: Primary Insurance: MEDICARE A & B Discharge Planning Comments: CM met with patient at bedside after explaining CM role and obtaining verbal consent. CM discussed availability / needs of home health, REHAB and medical equipment. HAS EQUIPMENT AT HOME. LIVES ALONE AND [facility] COMES TO HIS HOME. WANTS ME TO COME BACK AND SEE HIM AFTER DR. CASTELLANO VISITS WITH HIM. INPATIENT REHAB PRESCREEN WAS ORDERED. CM TO FOLLOW AND ASSIST. Fish Cake Maker: Yoana Abdullahi DCPIA - Discharge Planning Initial Assessment Updated by [id number]: Yoana Abdullahi on 06/27/19 2:37 pm * Is the patient Alert and Oriented? Yes * PCP GRAY * Preadmission Environment Home Alone * ADLs Independent * Other Equipment WALKER * Please name any agencies selected above. [facility] * Has this patient been hospitalized within the prior 30 days at any hospital? No Coverage Notice Reviewer: [id number] Priyank Abdullahi Notice Issued Date-Time: 06/30/2019 9:59 Notice Type: Patient Choice Letter Notice Delivered To: Other Relationship to Patient: Power of Reconciliation Manager Reflesher Name: AGNELA COLOEY Delivery Method: PHONE - Phone Tiara Days: Prior Verbal Notification: Recipient Understood Notice: Yes Recipient Signature: Med Rec Note Co-signed by Attending: Coverage Notice Comment: ARIEL BARCENAS Reviewer: [id number] Priyank Abdullahi Notice Issued Date-Time: 07/01/2019 9:16 Notice Type: IM Discharge Notice Notice Delivered To: Patient Relationship to Patient: Reflesher Name: Delivery Method: HAND - Hand Delivered Tiara Days: Prior Verbal Notification: Recipient Understood Notice: Yes Recipient Signature: Yes Med Rec Note Co-signed by Attending: Coverage Notice Comment: Last DP export: 06/30/19 3:38 p Patient Name: SHARMIN COOLEY Page 61750 at 0926 All edits/amendments must be made on the electronic document DICTATION DATE: 07/01/19925 GEOMETRY TUTOR: DANNIELLE 07/01/19925 RPT#: [id number] DC DATE: STATUS: ADM IN [facility] [address] [place] [address] END OF REPORT
--- NOTE | 2019-07-01 11:24 | MORECARE ---
CASE MANAGEMENT DISCHARGE SUMMARY PATIENT: SHARMIN OCOLEY UNIT: [id number] ADM DATE: 06/25/19 AGE: 84 : 34 SEX: M ROOM/BED: D.2234 AUTHOR: GIORGI PRICE PHYSICIAN: REFERRING PHYSICIAN: TRISTON CASTELLANO MD DATE OF SERVICE: 07/01/19 Discharge Plan Patient Name: SHARMIN COOLEY Facility: [facility]:[place] : 1935 Planned Disposition: Anticipated Discharge Date: Discharge Date: Expected LOS: Initial Reviewer: [id number] Initial Review Date: 06/27/2019 Generated: 07/01/19 12:24 pm Comments DCP- Discharge Planning Updated by [id number]: Yoana Abdullahi on 07/01/19 10:[address] Patient Name: SHARMIN COOLEY Encounter No: [id number] : 1935 Primary Insurance: MEDICARE A & B Anticipated DC Date: Planned Disposition: External Planned Provider: : DCP follow-up note: Patient and family in agreement with discharge plan. No changes to plan. Case management will follow and assist as needed. IMM signed. Yoana Abdullahi Appended by Yoana Abdullahi on 07/01/2019 11:18 CDT: DC FAXED TO [facility]. WAITING FOR CALL FOR PROVINCE ARCHIVIST TIME. DCP- Discharge Planning Updated by [id number]: Yoana Abdullahi on 06/30/19 9:[address] Patient Name: SHARMIN COOLEY Admission Status: ER Accout number: [id number] Admission Date: 06-25-2019 : 1935 Admission Diagnosis:WEAKNESS Attending: TRISTON CASTELLANO Current LOS: 5 Anticipated DC Date: Planned Disposition: Primary Insurance: MEDICARE A & B Discharge Planning Comments: CM SPOKE WITH ANGELA PICKARD/SON TODAY. WOULD LIKE FATHER TO GO TO [facility]. [facility] FOR [facility]. I FAXED REFERRAL AND NOTIFIED DONA. XAVIER TO FOLLOW. Recreational Therapy Aide: Yoana Abdullahi DCP- Discharge Planning Updated by [id number]: Yoana Abdullahi on 06/29/19 3:[address] Patient Name: SHARMIN COOLEY Admission Status: ER Accout number: [id number] Admission Date: 06-25-2019 : 1935 Admission Diagnosis:WEAKNESS Attending: TRISTON CASTELLANO Current LOS: 4 Anticipated DC Date: Planned Disposition: Primary Insurance: MEDICARE A & B Discharge Planning Comments: I spoke with patient's daughter Judy at [phone] today. She states Hospice may be a better option. would like In patient hospice at [facility] if he qualifies or possible Home hospice. The patient's POA is Angela Cooley at [phone], Judy said he gets off work at 2pm today, I will call him at 3pm today to discuss hospice. Cm to follow and assist as needed. Recreational Therapy Aide: Yoana Abdullahi Appended by Yoana Abdullahi on 06/29/2019 16:49 CDT: I TRIED CALLING PATIENT'S SON/POA, I GOT VOICEMAIL SO I LEFT A MSG TO CALL ME BACK. IF I DO NOT HERE FROM HIM TODAY I WILL TRY TO CALL TOMORROW. DCP- Discharge Planning Updated by [email or web address]: Yoana Abdullahi on 06/29/19 8:[address] Patient Name: SHARMIN COOLEY Admission Status: ER Accout number: [id number] Admission Date: 06-25-2019 : 1935 Admission Diagnosis:WEAKNESS Attending: TRISTON CASTELLANO Current LOS: 4 Anticipated DC Date: Planned Disposition: Primary Insurance: MEDICARE A & B Discharge Planning Comments: I spoke to the patients daughter Judy at [phone]. They would like him to have [facility]. Prescreen is in and OT assessed patient yesterday. CM to follow and assist as needed. Recreational Therapy Aide: Yoana Abdullahi DCP- Discharge Planning Updated by [email or web address]: Yoana Abdullahi on 06/27/19 1:[address] Patient Name: SHARMIN COOLEY Admission Status: ER Accout number: [id number] Admission Date: 06-25-2019 : 1935 Admission Diagnosis: Attending: TRISTON CASTELLANO Current LOS: 2 Anticipated DC Date: Planned Disposition: Primary Insurance: MEDICARE A & B Discharge Planning Comments: CM met with patient at bedside after explaining CM role and obtaining verbal consent. CM discussed availability / needs of home health, REHAB and medical equipment. HAS EQUIPMENT AT HOME. LIVES ALONE AND [facility] COMES TO HIS HOME. WANTS ME TO COME BACK AND SEE HIM AFTER DR. CASTELLANO VISITS WITH HIM. INPATIENT REHAB PRESCREEN WAS ORDERED. CM TO FOLLOW AND ASSIST. Recreational Therapy Aide: Yoana Abdullahi DCPIA - Discharge Planning Initial Assessment Updated by [id number]: Yoana Abdullahi on 06/27/19 2:37 pm * Is the patient Alert and Oriented? Yes * PCP GRAY * Preadmission Environment Home Alone * ADLs Independent * Other Equipment WALKER * Please name any agencies selected above. SCREW MACHINE SET UP OPERATOR [facility] [facility] * Has this patient been hospitalized within the prior 30 days at any hospital? No Coverage Notice Reviewer: [id number] Priyank Abdullahi Notice Issued Date-Time: 06/30/2019 9:59 Notice Type: Patient Choice Letter Notice Delivered To: Other Relationship to Patient: Power of Seal Delivery Vehicle Officer Electrolysis Needle Operator Name: ANGELA COOLEY Delivery Method: PHONE - Phone Tiara Days: Prior Verbal Notification: Recipient Understood Notice: Yes Recipient Signature: Med Rec Note Co-signed by Attending: Coverage Notice Comment: [facility] Reviewer: [email or web address] Priyank Abdullahi Notice Issued Date-Time: 07/01/2019 9:16 Notice Type: IM Discharge Notice Notice Delivered To: Patient Relationship to Patient: Electrolysis Needle Operator Name: Delivery Method: HAND - Hand Delivered Tiara Days: Prior Verbal Notification: Recipient Understood Notice: Yes Recipient Signature: Yes Med Rec Note Co-signed by Attending: Coverage Notice Comment: Last DP export: 07/01/19 8:26 a Patient Name: SHARMIN COOLEY Page 54111 at 1124 All edits/amendments must be made on the electronic document DICTATION DATE: 07/01/191123 DEPARTMENT EDITOR: DANNIELLE 07/01/19 112 RPT#: [id number] DC DATE: STATUS: ADM IN [facility] [address] [place] [address] END OF REPORT
--- NOTE | 2019-07-01 12:47 | NUR ---
REPORT CALLED TO YOSSI CROSS AT [facility]. IV DISCONTINUED AND VERBALIZED UNDERSTANDING OF DISCHARGE INSTRUCTIONS. PATIENT LEFT WITH PERSONAL BELONGINGS SUCH WALLET AND PHONE. STABLE AT TIME OF DISCHARGE.
--- NOTE | 2019-07-01 14:56 | MORECARE ---
CASE MANAGEMENT DISCHARGE SUMMARY PATIENT: SHARMIN COOLEY UNIT: [id number] ADM DATE: 06/25/19 AGE: 84 : 34 SEX: M ROOM/BED: D.2234 AUTHOR: GIORGI PRICE PHYSICIAN: REFERRING PHYSICIAN: TRISTON CASTELLANO MD DATE OF SERVICE: 07/01/19 Discharge Plan Patient Name: SHARMIN COOLEY Facility: [facility]:[place] : 1935 Planned Disposition: Anticipated Discharge Date: Discharge Date: 07/01/2019 Expected LOS: Initial Reviewer: [id number] Initial Review Date: 06/27/2019 Generated: 07/01/19 3:56 pm Comments DCP- Discharge Planning Updated by [email or web address]: Yoana Abdullahi on 07/01/19 10:[address] Patient Name: SHARMIN COOLEY Encounter No: [id number] : 1935 Primary Insurance: MEDICARE A & B Anticipated DC Date: Planned Disposition: External Planned Provider: : DCP follow-up note: Patient and family in agreement with discharge plan. No changes to plan. Case management will follow and assist as needed. IMM signed. Yoana Abdullahi Appended by Yoana Abdullahi on 07/01/2019 11:18 CDT: DC FAXED TO [facility]. WAITING FOR CALL FOR COLLAR FUSER TIME. DCP- Discharge Planning Updated by [id number]: Yoana Abdullahi on 06/30/19 9:[address] Patient Name: SHARMIN COOLEY Admission Status: ER Accout number: [id number] Admission Date: 06-25-2019 : 1935 Admission Diagnosis:WEAKNESS Attending: TRISTON CASTELLANO Current LOS: 5 Anticipated DC Date: Planned Disposition: Primary Insurance: MEDICARE A & B Discharge Planning Comments: CM SPOKE WITH ANGELA PICKARD/SON TODAY. WOULD LIKE FATHER TO GO TO [facility]. [facility] FOR [facility]. I FAXED REFERRAL AND NOTIFIED BRE. MORENITA TO FOLLOW. Latin Professor: Yoana Abdullahi DCP- Discharge Planning Updated by [id number]: Yoana Abdullahi on 06/29/19 3:[address] Patient Name: SHARMIN COOLEY Admission Status: ER Accout number: [id number] Admission Date: 06-25-2019 : 1935 Admission Diagnosis:WEAKNESS Attending: TRISTON CASTELLANO Current LOS: 4 Anticipated DC Date: Planned Disposition: Primary Insurance: MEDICARE A & B Discharge Planning Comments: I spoke with patient's daughter Judy at [phone] today. She states Hospice may be a better option. States would like In patient hospice at [facility] if he qualifies or possible Home hospice. The patient's POA is Angela Cooley at [phone], Judy said he gets off work at 2pm today, I will call him at 3pm today to discuss hospice. Cm to follow and assist as needed. Latin Professor: Yoana Abdullahi Appended by Yoana Abdullahi on 06/29/2019 16:49 CDT: I TRIED CALLING PATIENT'S SON/POA, I GOT VOICEMAIL SO I LEFT A MSG TO CALL ME BACK. IF I DO NOT HERE FROM HIM TODAY I WILL TRY TO CALL TOMORROW. DCP- Discharge Planning Updated by [id number]: Yoana Abdullahi on 06/29/19 8:[address] Patient Name: SHARMIN COOLEY Admission Status: ER Accout number: [id number] Admission Date: 06-25-2019 : 1935 Admission Diagnosis:WEAKNESS Attending: TRISTON CASTELLANO Current LOS: 4 Anticipated DC Date: Planned Disposition: Primary Insurance: MEDICARE A & B Discharge Planning Comments: I spoke to the patients daughter Judy at [phone]. They would like him to have [facility]. Prescreen is in and OT assessed patient yesterday. CM to follow and assist as needed. Latin Professor: Yoana Abdullahi DCP- Discharge Planning Updated by [id number]: Yoana Abdullahi on 06/27/19 1:[address] Patient Name: SHARMIN COOLEY Admission Status: ER Accout number: [id number] Admission Date: 06-25-2019 : 1935 Admission Diagnosis: Attending: TRISTON CASTELLANO Current LOS: 2 Anticipated DC Date: Planned Disposition: Primary Insurance: MEDICARE A & B Discharge Planning Comments: CM met with patient at bedside after explaining CM role and obtaining verbal consent. CM discussed availability / needs of home health, REHAB and medical equipment. STATES HAS EQUIPMENT AT HOME. LIVES ALONE AND [facility] COMES TO HIS HOME. WANTS ME TO COME BACK AND SEE HIM AFTER DR. CASTELLANO VISITS WITH HIM. INPATIENT REHAB PRESCREEN WAS ORDERED. CM TO FOLLOW AND ASSIST. Latin Professor: Yoana Abdullahi DCPIA - Discharge Planning Initial Assessment Updated by [id number]: Yoana Abdullahi on 06/27/19 2:37 pm * Is the patient Alert and Oriented? Yes * PCP GRAY * Preadmission Environment Home Alone * ADLs Independent * Other Equipment WALKER * Please name any agencies selected above. [facility] * Has this patient been hospitalized within the prior 30 days at any hospital? No Coverage Notice Reviewer: [id number] Priyank Abdullahi Notice Issued Date-Time: 06/30/2019 9:59 Notice Type: Patient Choice Letter Notice Delivered To: Other Relationship to Patient: Power of Vessel Welder Jacquard Fixer Name: ANGELA COOLEY Delivery Method: PHONE - Phone Tiara Days: Prior Verbal Notification: Recipient Understood Notice: Yes Recipient Signature: Med Rec Note Co-signed by Attending: Coverage Notice Comment: [facility] Reviewer: [id number] Priyank Abdullahi Notice Issued Date-Time: 07/01/2019 9:16 Notice Type: IM Discharge Notice Notice Delivered To: Patient Relationship to Patient: Jacquard Fixer Name: Delivery Method: HAND - Hand Delivered Tiara Days: Prior Verbal Notification: Recipient Understood Notice: Yes Recipient Signature: Yes Med Rec Note Co-signed by Attending: Coverage Notice Comment: Last DP export: 07/01/19 10:24 a Patient Name: SHARMIN COOLEY Page 52944 at 1456 All edits/amendments must be made on the electronic document DICTATION DATE: 07/01/19 1453 HYDROELECTRIC COMPONENT MACHINIST: DANNIELLE 07/01/19 1459 RPT#: [id number] DC DATE:07/01/19 STATUS: DIS IN [facility] [address] [place] [address] END OF REPORT
== END 2019-07-01 13:03 | DRG 722 ==
LOC: D.ER 18:37 → D.MS 20:37
PROVIDERS: Surgery; ADMIT Family Medicine; ATTEND Family Medicine
DX: C61 Malignant neoplasm of prostate (principal); E43 Unspecified severe protein-calorie malnutrition; C79.51 Secondary malignant neoplasm of bone; C79.52 Secondary malignant neoplasm of bone marrow; C79.89 Secondary malignant neoplasm of other specified sites; M54.9 Dorsalgia, unspecified; G89.29 Other chronic pain; F03.90 Unspecified dementia, unspecified severity, without behavioral disturbance, psychotic disturbance, mood disturbance, and anxiety; D63.0 Anemia in neoplastic disease; R53.1 Weakness; W19.XXXA Unspecified fall, initial encounter; Z68.20 Body mass index [BMI] 20.0-20.9, adult

== ENCOUNTER 2019-10-01 02:01 | Inpatient (IN) | payer MEDICARE, BC ==
[~2019-10-01] VITALS: Ht 188 cm; Wt 81.8 kg
[2019-10-01] VITALS (8 sets, daily range): BP systolic 146–178; BP diastolic 72–873; Ht 188 cm; Wt 81.8 kg
[~2019-10-01 02:01] MED LIST changes: +HYDROCODON-ACE1 EA10 PO; +HYDROCODON-ACE1 EAC7 PO; +IBUPROFEN400 MG PO; +KENALOG 0.1 % 115 GM TOPICAL
[2019-10-01 02:24] LABS: BASOPHILS 0.3 % (0-2); EOSINOPHILS 0.6 % (0-7); HEMATOCRIT 31.4 % (42.0-54.0); HEMOGLOBIN 10.4 g/dL (13.5-17.5); IMMATURE GRANULOCYTES 0.4 % (0-5); LYMPHOCYTES 25.9 % (15-50); MCHC 33.1 g/dL (31.0-37.0); MCV 90.5 fL (80.0-100.0); MEAN PLATELET VOLUME 9.2 fL (7.4-10.4); MONOCYTES 11.5 % (2-11); NEUTROPHILS 61.3 % (40-80); PLATELET COUNT 280 10x3/uL (130-400); RBC 3.47 10x6/uL (4.20-6.10); RDW 12.6 % (11.5-14.5); WBC 6.7 10x3/uL (4.8-10.8)
[2019-10-01 02:34] LABS: APTT 32.9 SECONDS (22.8-39.4); CALC OSMOLALITY 278 mosm/kg (275-300); CARBON DIOXIDE 25.2 mmol/L (21.0-32.0); CHLORIDE - SERUM 103 mmol/L (98-107); CREATININE - SERUM 1.1 mg/dL (0.6-1.3); GLUCOSE 115 mg/dL (74-106); INR 1.06 (0.85-1.17); POTASSIUM - SERUM 3.8 mmol/L (3.5-5.1); PROTIME 13.8 SECONDS (11.6-15.0); SODIUM 138 mmol/L (136-145); UREA NITROGEN 19 mg/dL (7-18); eGFR NON AFRICAN AMERICAN 67 mL/min (90-120)
[2019-10-01 02:48] LABS: ALBUMIN 3.1 g/dL (3.4-5.0); ALKALINE PHOSPHATASE 228 U/L (30-120); ALT (SGPT) 17 U/L (10-68); BILIRUBIN - TOTAL 0.65 mg/dL (0.2-1.3); CKMB 2.3 U/L (0.0-3.6); CREATINE KINASE 169 UL (21-232); MAGNESIUM - SERUM 2.4 mg/dL (1.8-2.4); PROTEIN - SERUM 7.6 g/dL (6.4-8.2); THYROID STIMULATING HORMONE 1.96 uIU/mL (0.36-3.74); TROPONIN-I 0.018 ng/mL (0.000-0.060)
[2019-10-01 03:03] LABS: BILIRUBIN NEGATIVE (NEGATIVE); GLUCOSE NEGATIVE (NEGATIVE); KETONE NEGATIVE (NEGATIVE); NITRITE NEGATIVE (NEGATIVE); UDS - AMPHET NEGATIVE QUAL (NEGATIVE); UDS - BARB NEGATIVE QUAL (NEGATIVE); UDS - BENZO NEGATIVE QUAL (NEGATIVE); UDS - COCAINE NEGATIVE QUAL (NEGATIVE); UDS - OPIATE POSITIVE QUAL (NEGATIVE); UDS - PCP NEGATIVE QUAL (NEGATIVE); UDS - THC NEGATIVE QUAL (NEGATIVE); UROBILINOGEN NORMAL (NORMAL)
[2019-10-01 03:04] LABS: RED CELLS - URINE 0-5 /hpf (0-5); WHITE CELLS - URINE 25-50 /hpf (NEGATIVE)
--- NOTE | 2019-10-01 06:28 | NUR ---
NS INFUSING AT 100CC HR ON TRANSFER
--- NOTE | 2019-10-01 21:15 | NUR ---
PATIENT FOUND SITTING IN FLOOR BESIDE BED HOLDING ON TO SIDE RAIL. HAS PULLED IV OUT.GETACHEW ALARM ON BED BUT DID NOT SOUND. GETACHEW REPLACED. PATIENT ASSISTED BACK TO BED X 4 PEOPLE.NO INJURIES NOTED. ASSESSOR, AND DAUGHTER MELO NOTIFIED.MARCIANO MAO NOTIFIED WITH ORDERS RECEIVED..PATIENT CONTINUALLY TRYING TO THROW LEGS OVER RAILS AND TRYING TO GET UP. MELATONIN 6 MG GIVEN PO PER ORDERS..
--- NOTE | 2019-10-02 04:19 | NUR ---
I have reviewed this patient and I concur with the Shift Assessment completed by the Licensed Practical Nurse today this shift.
[2019-10-02 06:58] LABS: BASOPHILS 0.1 % (0-2); EOSINOPHILS 0 % (0-7); HEMATOCRIT 31.9 % (42.0-54.0); HEMOGLOBIN 10.5 g/dL (13.5-17.5); IMMATURE GRANULOCYTES 0.6 % (0-5); LYMPHOCYTES 12.9 % (15-50); MCH 29.7 pg (26.0-34.0); MCHC 32.9 g/dL (31.0-37.0); MCV 90.4 fL (80.0-100.0); MEAN PLATELET VOLUME 9.6 fL (7.4-10.4); MONOCYTES 11.8 % (2-11); NEUTROPHILS 74.6 % (40-80); PLATELET COUNT 320 10x3/uL (130-400); RBC 3.53 10x6/uL (4.20-6.10); RDW 12.7 % (11.5-14.5)
[2019-10-02 07:15] LABS: ANION GAP 14.4 mmol/L (8-16); BILIRUBIN - TOTAL 0.75 mg/dL (0.2-1.3); CALCIUM 8.8 mg/dL (8.5-10.1); CARBON DIOXIDE 22.2 mmol/L (21.0-32.0); CREATININE - SERUM 1.2 mg/dL (0.6-1.3); MAGNESIUM - SERUM 2.1 mg/dL (1.8-2.4); PHOSPHOROUS 2.8 mg/dL (2.5-4.9); POTASSIUM - SERUM 3.6 mmol/L (3.5-5.1); PROTEIN - SERUM 7.4 g/dL (6.4-8.2)
[2019-10-02] MEDS ORDERED: SENNA LAXATIVE8.6 MG PO (07:55)
[2019-10-02] MEDS ORDERED: ACETAMINOPHEN325 MG PO (07:55)
[2019-10-02] MEDS ORDERED: COLACE100 MG PO (07:59)
[2019-10-02] MEDS ORDERED: DURAGESIC1 EAC4 TS (08:01)
[2019-10-02] MEDS ORDERED: TORADOL10 MG PO (08:01)
[2019-10-02] MEDS ORDERED: ATIVAN0.5 MG PO (08:02)
[2019-10-02 09:01] VITALS: BP 140/80
--- NOTE | 2019-10-02 09:11 | NUR ---
PATIENT IN BED WITH NO IV IN PLACE. NIGHT NURSE STATED HE PULLED IT OUT LAST NIGHT AND DIDNT REPLACE BC HIS ABX ARENT DUE UNTIL 1400. PATIENT IS STILL CONFUSED AND HAS NOT SLEPT SINCE HE GOT HERE AT 0630 LAST AM. HAS A LOT OF BACK PAIN. NORCO GIVEN. PATIENT ATE SMALL AMOUNT OF BREAKFAST. IS CURRENTLY IN BED FIDGETING AROUND AND NOT RESTING AT THIS TIME. BED ALARM AND GETACHEW ALARM ON. CALL LIGHT WITHIN REACH.
[2019-10-02 12:25] VITALS: BP 132/70
--- NOTE | 2019-10-02 15:30 | NUR ---
PATIENT IV STARTED IN LEFT ARM AT THIS TIME X 1 STICK. PATIENT TOLERATED WITH SMALL AMOUNT OF PAIN. IVF AND LEVAQUIN STARTED. BED ALARM ON. CALL LIGHT WITHIN REACH.
[2019-10-02 16:00] VITALS: BP 135/75
--- NOTE | 2019-10-02 17:08 | NUR ---
PATIENT IN BED MOANING AND GROANING. STATED HE HURTS TOO MUCH AND IS READY TO BE DONE WITH ALL OF THIS. PAIN PILL GIVEN. IV INTACT. BED ALARM ON. CALL LIGHT WITHIN REACH.
--- NOTE | 2019-10-02 18:37 | NUR ---
PATIENT SITTING UP IN BED EATING WITH NO COMPLAINTS. IV INTACT. CALL LIGHT WITHIN REACH. BED ALARMS ON.
--- NOTE | 2019-10-02 20:36 | NUR ---
RESTING QUIETLY WITH NO DISTRESS NOTED. CL IN REACH. BED IN LOW POSITION WITH BED ALARMS ON.
[2019-10-03] VITALS: BP 136/69
[2019-10-03 06:09] LABS: ALBUMIN 2.6 g/dL (3.4-5.0); ANION GAP 14.4 mmol/L (8-16); BILIRUBIN - TOTAL 0.71 mg/dL (0.2-1.3); CALCIUM 8.4 mg/dL (8.5-10.1); CARBON DIOXIDE 24.3 mmol/L (21.0-32.0); CREATININE - SERUM 1.1 mg/dL (0.6-1.3); MAGNESIUM - SERUM 2.3 mg/dL (1.8-2.4); PROTEIN - SERUM 6.5 g/dL (6.4-8.2)
[2019-10-03 06:16] LABS: POTASSIUM - SERUM 4.7 mmol/L (3.5-5.1)
--- NOTE | 2019-10-03 07:20 | NUR ---
CONFUSED, RESTING IN BED WITH EYES OPEN. NO C/O PAIN. NO S/S OF ACUTE DISTRESS NOTED. INCONTINENT OF B&B. SCRATCHES TO BACK AND BRUISE TO THE TOP OF RIGHT FOOT. GETACHEW ALARM ON. IV TO LEFT FOREARM, NS INFUSING @ 100ML/HR. SITE PATENT WITHOUT REDNESS OR SWELLING. DENIES ANY NEEDS AT THIS TIME. CALL LIGHT IN REACH. WILL CONTINUE TO MONITOR.
[2019-10-03 08:01] LABS: BASOPHILS 0.3 % (0-2); EOSINOPHILS 0.2 % (0-7); HEMATOCRIT 30.8 % (42.0-54.0); IMMATURE GRANULOCYTES 0.7 % (0-5); LYMPHOCYTES 21.5 % (15-50); MCH 29.5 pg (26.0-34.0); MCHC 32.5 g/dL (31.0-37.0); MCV 90.9 fL (80.0-100.0); MONOCYTES 11.2 % (2-11); NEUTROPHILS 66.1 % (40-80); RBC 3.39 10x6/uL (4.20-6.10); RDW 12.7 % (11.5-14.5)
[2019-10-03 08:09] LABS: PLATELET COUNT 240 10x3/uL (130-400); WBC 5.8 10x3/uL (4.8-10.8)
[2019-10-03 08:39] VITALS: BP 119/74
[2019-10-03 12:29] VITALS: BP 116/60
[2019-10-03 17:15] VITALS: BP 96/54
--- NOTE | 2019-10-03 18:33 | NUR ---
RESTING IN BED WITH EYES OPEN. NO C/O PAIN. NO S/S OF ACUTE DISTRESS NOTED. CALL LIGHT IN REACH. GETACHEW ALARM ON. WILL CONTINUE TO MONITOR.
--- NOTE | 2019-10-03 19:55 | NUR ---
LYING IN BED. ALERT AND ORIENTED X2, SELF AND PLACE. CONFUSED. ANDREAFSKI. RESP EVEN AND NONLABORED. INCONT OF B/B. SCABS NOTED TO BUE. ABRASIONS NOTED TO BACK. BRUISE NOTED TO RT FOOT. EGGCRATE MATTRESS IN USE. NS @ 100 MLHR INFUSING IN LT FOREARM. DENIES PAIN. SR ELEVATED X2. CL IN REACH. GETACHEW ALARM IN USE FOR PT SAFETY.
[2019-10-03 20:00] VITALS: BP 100/43
--- NOTE | 2019-10-04 01:22 | NUR ---
MEDICATED WITH NORCO FOR C/O BACK PAIN. INCONT OF B/B AT THIS TIME. PERICARE PERFORMED AND LINENS CHANGED. BUTT PASTE APPLIED TO BUTTOCKS. CL IN REACH. GETACHEW ALARM ON
--- NOTE | 2019-10-04 02:12 | NUR ---
RESTING WITH EYES CLOSED. RESP NONLABORED. NO DISTRESS. CL IN REACH. GETACHEW ALARM ON.
[2019-10-04 04:30] VITALS: BP 117/40
--- NOTE | 2019-10-04 05:30 | NUR ---
INCONT OF BLADDER. PERICARE PERFORMED. CL IN REACH. GETACHEW ALARM ON
[2019-10-04 06:31] LABS: BASOPHILS 0.2 % (0-2); EOSINOPHILS 0.5 % (0-7); HEMATOCRIT 27.8 % (42.0-54.0); HEMOGLOBIN 8.9 g/dL (13.5-17.5); IMMATURE GRANULOCYTES 0.5 % (0-5); LYMPHOCYTES 21.1 % (15-50); MCH 29.4 pg (26.0-34.0); MCV 91.7 fL (80.0-100.0); MEAN PLATELET VOLUME 9.6 fL (7.4-10.4); MONOCYTES 11.1 % (2-11); NEUTROPHILS 66.6 % (40-80); PLATELET COUNT 222 10x3/uL (130-400); RBC 3.03 10x6/uL (4.20-6.10); RDW 13.2 % (11.5-14.5)
[2019-10-04 07:24] LABS: ALBUMIN 2.2 g/dL (3.4-5.0); ANION GAP 12.5 mmol/L (8-16); BILIRUBIN - TOTAL 0.36 mg/dL (0.2-1.3); CALCIUM 7.9 mg/dL (8.5-10.1); CARBON DIOXIDE 19.4 mmol/L (21.0-32.0); CREATININE - SERUM 1.3 mg/dL (0.6-1.3); MAGNESIUM - SERUM 2.2 mg/dL (1.8-2.4); PROTEIN - SERUM 5.9 g/dL (6.4-8.2)
[2019-10-04 07:26] LABS: POTASSIUM - SERUM 3.9 mmol/L (3.5-5.1)
--- NOTE | 2019-10-04 07:50 | NUR ---
PT IS RESTING IN BED WITH EYES OPEN. RESPIRATIONS ARE EVEN AND UNLABORED. PT IS PLEASANT AND ORIENTED TO SELF AND PLACE. PT REORIENTED TO TIME AND SITUATION. PT DENIES PRESENCE OF PAIN/N/V AT THIS TIME. PT REPORTS "MY LEGS ARE FEELING LIKE A LOG". BILATERAL PEDAL PULSES ARE PALP. BLE CAP REFILL IS < 3 SECONDS. BLE ARE WARM TO TOUCH AND PT IS ABLE TO MOVE BLE UPON COMMAND. PT REPOSITIONED TO LEFT SIDE. EGG CRATE MATTRESS IS IN PLACE. FALL PRECAUTIONS IN PLACE. PT ROOM CLOSE TO NURSE STATION. CALL LIGHT AND BEDSIDE TABLE ARE WITHIN REACH. SIDE RAILS X 2. PT DENIES FURTHER NEEDS. WILL CONT TO MONITOR.
[2019-10-04 08:00] VITALS: BP 115/70
[2019-10-04 12:00] VITALS: BP 117/60
--- NOTE | 2019-10-04 15:10 | MORECARE ---
CASE MANAGEMENT DISCHARGE SUMMARY PATIENT: SHARMIN HERR UNIT: [id number] ADM DATE: 10/01/19 AGE: 84 : 34 SEX: M ROOM/BED: D.2214 AUTHOR: GIORGI PRICE PHYSICIAN: REFERRING PHYSICIAN: ESTEVAN LINDSEY DO DATE OF SERVICE: 10/04/19 Discharge Plan Patient Name: SHARMIN HERR Facility: [facility]:[place] : 1935 Planned Disposition: Fpc Facility Anticipated Discharge Date: Discharge Date: Expected LOS: Initial Reviewer: [email or web address] Initial Review Date: 10/01/2019 Generated: 10/04/19 4:09 pm External Providers [facility] Next Contact Date: Service Request Date: Service Type: Resolution: Reviewer: Comments: Patient Name: SHARMIN HERR Page 09200 at 1510 All edits/amendments must be made on the electronic document DICTATION DATE: 10/04/19 1510 BIOINFORMATICS PROGRAMMER: DANNIELLE 10/04/19 1510 RPT#: [id number] PA DATE: STATUS: ADM IN [facility] [address] [place] [address] END OF REPORT
--- NOTE | 2019-10-04 15:22 | NUR ---
REPORT CALLED TO YOSSI AT [facility] / [facility]. NO FURTHER QUESTIONS.
--- NOTE | 2019-10-04 15:27 | MORECARE ---
CASE MANAGEMENT DISCHARGE SUMMARY PATIENT: SHARMIN HERR UNIT: [id number] ADM DATE: 10/01/19 AGE: 84 : 34 SEX: M ROOM/BED: D.2214 AUTHOR: GIORGI PRICE PHYSICIAN: REFERRING PHYSICIAN: ESTEVAN LINDSEY DO DATE OF SERVICE: 10/04/19 Discharge Plan Patient Name: SHARMIN HERR Facility: [facility]:[place] : 1935 Planned Disposition: Prison Facility Anticipated Discharge Date: Discharge Date: Expected LOS: Initial Reviewer: [email or web address] Initial Review Date: 10/01/2019 Generated: 10/04/19 4:26 pm Comments DCP- Discharge Planning Updated by [email or web address]: Rose Qiu on 10/04/19 2:[address] WENT TO SPEAK WITH PATIENT HE VERBILAZED HE DID NOT WANT TO SIGN ANYTHING HE WAS CONCERNED ABOUT HIS LEFT LEG NOT WORKING. PER DR SETH HE WAS ON HOSPICE AT THE LONG TERM, PER ARIEL HE WAS IN A SKILLED BED AND WALKING WITH A WALKER. PER TANK FURNACE OPERATOR THE PATIENT IS CONFUSED. I AM ATTEMPTING TO CALL HIS DAUGHTER MELO TO LET HER KNOW ABOUT THE DISCHARGE AND IMM. THERE WAS NOT AN ANSWER I WILL TRY TO CALL NIKOLAY HIS OTHER DAUGHTER. I ATTEPMTED TO CALL HER AND THERE WAS NO ANSWER. I GOT AHOLD OF MELO AND LET HER KNOW ABOUT THE DISCHARGE AND IMM. WE WILL MAIL OUT AN IMM TO HER. CM WILL CONTINUE TO FOLLOW AND ASSIST NEEDED Coverage Notice Reviewer: [email or web address] - Rose Qiu Notice Issued Date-Time: 10/04/2019 15:21 Notice Type: IM Discharge Notice Notice Delivered To: Family Member Relationship to Patient: Daughter Nonprofit Financial Controller Name: MELO FAJARDO Delivery Method: CERT - Certified Mail Tiara Days: Prior Verbal Notification: Yes Recipient Understood Notice: Yes Recipient Signature: Med Rec Note Co-signed by Attending: Coverage Notice Comment: IMM OVER PHONE WITH MELO VIA TELEPHONE Last DP export: 10/04/19 2:10 p Patient Name: SHARMIN HERR Page [id number] at 1527 All edits/amendments must be made on the electronic document DICTATION DATE: 10/04/191526 MOLD CAR PUSHER: DANNIELLE 10/04/191526 RPT#: [id number] DC DATE: STATUS: ADM IN [facility] [address] [facility] [place] [address] END OF REPORT
[2019-10-04] MEDS ORDERED: LEVOFLOXACIN500 MG PO (15:43)
--- NOTE | 2019-10-04 16:00 | NUR ---
ALL DISCHARGE INSTRUCTIONS COVERED WITH PT. TRANSPORTATION TEAM FOR [facility] HERE TO TRANSPORT PT FROM ROOM VIA WHEELCHAIR. ALL DISCHARGE PAPERS SIGNED BY PT. SIGNED DC PAPERS PLACED IN PT CHART. PIV TO LEFT FA REMOVED WITH CATHETER TIP INTACT. DRESSING APPLIED. ALL PT BELONGINS WITH PT. PT DENIES FURTHER QUESTIONS/CONCERNS/NEEDS. PT THANKS THIS NURSE FOR CARE GIVEN DURING TIS SHIFT. PT TRANSPORTED FROM ROOM VIA WHEELCHAIR BY [facility] STAFF.
--- NOTE | 2019-10-06 13:34 | MORECARE ---
CASE MANAGEMENT DISCHARGE SUMMARY PATIENT: SHARMIN HERR UNIT: [id number] ADM DATE: 10/01/19 AGE: 84 : 34 SEX: M ROOM/BED: D.2214 AUTHOR: GIORGI PRICE PHYSICIAN: REFERRING PHYSICIAN: ESTEVAN LINDSEY DO DATE OF SERVICE: 10/06/19 Discharge Plan Patient Name: SHARMIN HERR Facility: [facility]:[place] : 1935 Planned Disposition: Prison Facility Anticipated Discharge Date: Discharge Date: 10/04/2019 Expected LOS: Initial Reviewer: [email or web address] Initial Review Date: 10/01/2019 Generated: 10/06/19 2:34 pm Comments DCP- Discharge Planning Updated by [email or web address]: Rose Qiu on 10/04/19 2:[address] WENT TO SPEAK WITH PATIENT HE VERBILAZED HE DID NOT WANT TO SIGN ANYTHING HE WAS CONCERNED ABOUT HIS LEFT LEG NOT WORKING. PER DR SETH HE WAS ON HOSPICE AT THE [place], PER ARIEL HE WAS IN A SKILLED BED AND WALKING WITH A WALKER. 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 I AM ATTEMPTING TO CALL HIS DAUGHTER MELO TO LET HER KNOW ABOUT THE DISCHARGE AND IMM. THERE WAS NOT AN ANSWER I WILL TRY TO CALL NIKOLAY HIS OTHER DAUGHTER. I ATTEPMTED TO CALL HER AND THERE WAS NO ANSWER. I GOT AHOLD OF MELO AND LET HER KNOW ABOUT THE DISCHARGE AND IMM. WE WILL MAIL OUT AN IMM TO HER. CM WILL CONTINUE TO FOLLOW AND ASSIST NEEDED Coverage Notice Reviewer: [email or web address] - Rose Qiu Notice Issued Date-Time: 10/04/2019 15:21 Notice Type: IM Discharge Notice Notice Delivered To: Family Member Relationship to Patient: Daughter Liquor Commissioner Name: MELO FAJARDO Delivery Method: CERT - Certified Mail Tiara Days: Prior Verbal Notification: Yes Recipient Understood Notice: Yes Recipient Signature: Med Rec Note Co-signed by Attending: Coverage Notice Comment: IMM OVER PHONE WITH MELO VIA TELEPHONE Last DP export: 10/04/19 2:27 p Patient Name: SHARMIN HERR Page [id number] at 1334 All edits/amendments must be made on the electronic document DICTATION DATE: 10/06/19 1334 LEATHER GRADER: DANNIELLE 10/06/19 1334 RPT#: [id number] DC DATE:10/04/19 STATUS: DIS IN [facility] [address] [place] [address] END OF REPORT
== END 2019-10-04 17:12 | DRG 689 ==
LOC: D.ER 02:01 → D.MS 03:55
PROVIDERS: Family Medicine; ADMIT Family Medicine; ATTEND Family Medicine
DX: N39.0 Urinary tract infection, site not specified (principal); G93.41 Metabolic encephalopathy; S32.009A Unspecified fracture of unspecified lumbar vertebra, initial encounter for closed fracture; C79.51 Secondary malignant neoplasm of bone; C61 Malignant neoplasm of prostate; F03.90 Unspecified dementia, unspecified severity, without behavioral disturbance, psychotic disturbance, mood disturbance, and anxiety; D64.9 Anemia, unspecified; Z91.81 History of falling; I73.9 Peripheral vascular disease, unspecified